=== PATIENT | male | born 1940 | race Caucasian/White ===

== ENCOUNTER 2020-06-29 18:34 | Emergency (ER) | payer OTHER, MEDICARE, SELFPAY ==
[~2020-06-29] VITALS: Ht 157.5 cm; Wt 62.6 kg
[2020-06-29 18:45] VITALS: BP_SYST 152
[2020-06-29 19:16] LABS: BASOPHILS # (AUTO) 0.1 K/uL (0.0-0.2); BASOPHILS % (AUTO) 0.9 % (0.0-2.0); EOSINOPHILS # (AUTO) 0.1 K/uL (0.0-0.4); EOSINOPHILS % (AUTO) 1.5 % (0.0-4.0); HEMATOCRIT 33.1 % (36-54); HEMOGLOBIN 11.2 g/dL (14.0-18.0); LYMPHOCYTES # (AUTO) 2.1 K/uL (1.0-5.5); LYMPHOCYTES % (AUTO) 23.1 % (20.5-51.5); MEAN CORPUSCULAR HEMOGLOBIN 33 pg (27-31); MEAN CORPUSCULAR HGB CONC 34 % (32-36); MEAN CORPUSCULAR VOLUME 96 fL (79.0-98.0); MONOCYTES % (AUTO) 10.6 % (1.7-9.3); NEUTROPHILS # (AUTO) 5.7 K/uL (1.8-7.7); NEUTROPHILS % (AUTO) 63.9 % (40.0-70.0); PLATELET COUNT (AUTO) 226 K/uL (130-430); RED BLOOD CELL COUNT(AUTO) 3.44 MIL/uL (4.2-6.2); RED CELL DISTRIBUTION WIDTH 13.5 % (9.0-15.0)
[2020-06-29] MEDS ORDERED: ONDANSETRON HCL 4 MG/2 ML VIAL IVP ONE (19:30)
[2020-06-29 19:51] LABS: ANION GAP 10 (5-15); CALCIUM 8.7 mg/dL (8.4-11.0); CHLORIDE 105 mmol/L (98-107); CREATININE 1.91 mg/dL (0.55-1.30); GLUCOSE 98 mg/dL (70-99); POTASSIUM 4.4 mmol/L (3.5-5.1); SODIUM SERUM 139 mmol/L (136-145); UREA NITROGEN, BLOOD 31 mg/dL (8-21)
[2020-06-29 19:57] LABS: ALANINE AMINOTRANSFERASE 23 U/L (12-78); ASPARTATE AMINOTRANSFERASE 25 U/L (10-37); TOTAL BILIRUBIN 0.4 mg/dL (0.0-1.0)
[2020-06-29 20:19] LABS: BILIRUBIN,URINE NEGATIVE (NEGATIVE); BLOOD, URINE 1+ (NEGATIVE); CLARITY/URINE CLEAR (CLEAR); COLOR,URINE YELLOW (YELLOW); GLUCOSE,URINE NEGATIVE (NEGATIVE); KETONES,URINE TRACE (NEGATIVE); LEUKOCYTE ESTERASE ,URINE NEGATIVE (NEGATIVE); NITRITE, URINE NEGATIVE (NEGATIVE); PROTEIN URINE 2+ (NEGATIVE); UROBILINOGEN,URINE 0.2 (0.2-1.0)
[2020-06-29 20:39] LABS: BACTERIA,URINE FEW /HPF (None Seen); HYALINE CASTS, URINE 0-10 /LPF (None Seen); RBC,URINE 0-3 /HPF (0-3); WBC,URINE 0-3 /HPF (0-3)
[2020-06-29 20:40] LABS: COARSE GRANULAR CASTS,URINE 0-10 /LPF (None Seen)
[2020-06-29 21:53] VITALS: BP_SYST 152
== END 2020-06-29 21:53 ==
LOC: SED 18:34
DX: R45.6 Violent behavior (principal); Z20.828 Contact with and (suspected) exposure to other viral communicable diseases
CPT/HCPCS: 36415; 71045; 80053; 81000-TC; 85025; 87081; 99285

== ENCOUNTER 2020-07-15 01:11 | Inpatient (IN) | payer OTHER, MEDICARE, SELFPAY ==
[~2020-07-15] VITALS: Ht 175.3 cm; Wt 73.0 kg
--- NOTE | 2020-07-15 01:11 | NUR ---
Patient to ER bed 5 to gown for evaluation. Side rails up. Report given to FREDDY.
--- NOTE | 2020-07-15 01:13 | NUR ---
PT ALERT BIB AMBULANCE FROM [facility] FOR LOW BLOOD PRESSURE TODAY. CURRENTLY V/S ARE STABLE AND PT IN NO ACUTE DISTRESS.
[2020-07-15 01:15] VITALS: BP_SYST 118
--- NOTE | 2020-07-15 01:15 | NUR ---
ER Dr. ROD at bedside examining patient.
[2020-07-15] MEDS ORDERED: NACL 0.9% 1,000 ML IV SCH (01:21)
--- NOTE | 2020-07-15 01:50 | NUR ---
VSS no s/s of acute distress Resting on gurney rails up
[2020-07-15 01:52] LABS: BASOPHILS # (AUTO) 0.1 K/uL (0.0-0.2); BASOPHILS % (AUTO) 0.4 % (0.0-2.0); EOSINOPHILS # (AUTO) 0.1 K/uL (0.0-0.4); EOSINOPHILS % (AUTO) 0.3 % (0.0-4.0); HEMOGLOBIN 13.3 g/dL (14.0-18.0); LYMPHOCYTES # (AUTO) 2.3 K/uL (1.0-5.5); LYMPHOCYTES % (AUTO) 13.3 % (20.5-51.5); MEAN CORPUSCULAR HEMOGLOBIN 32 pg (27-31); MEAN CORPUSCULAR HGB CONC 32 % (32-36); MEAN CORPUSCULAR VOLUME 100 fL (79.0-98.0); MONOCYTES # (AUTO) 1.2 K/uL (0.0-1.0); MONOCYTES % (AUTO) 6.7 % (1.7-9.3); NEUTROPHILS % (AUTO) 79.3 % (40.0-70.0); PLATELET COUNT (AUTO) 239 K/uL (130-430); WHITE BLOOD COUNT (AUTO) 17.7 K/uL (4.8-10.8)
[2020-07-15 02:34] LABS: ANION GAP 11 (5-15); CALCIUM 8.4 mg/dL (8.4-11.0); CREATININE 4.09 mg/dL (0.55-1.30); GLUCOSE 110 mg/dL (70-99); POTASSIUM 4.6 mmol/L (3.5-5.1); UREA NITROGEN, BLOOD 76 mg/dL (8-21)
[2020-07-15 02:50] LABS: ALANINE AMINOTRANSFERASE 37 U/L (12-78); ALBUMIN 2.8 g/dL (3.4-4.8); ASPARTATE AMINOTRANSFERASE 63 U/L (10-37); TOTAL BILIRUBIN 0.2 mg/dL (0.0-1.0)
[2020-07-15 02:54] LABS: SODIUM SERUM 161 mmol/L (136-145)
[2020-07-15 02:55] LABS: CHLORIDE 124 mmol/L (98-107)
--- NOTE | 2020-07-15 02:55 | NUR ---
Portable X Ray bedside, well tolerated
[2020-07-15 03:13] LABS: BILIRUBIN,URINE 1+ (NEGATIVE); BLOOD, URINE 2+ (NEGATIVE); CLARITY/URINE CLEAR (CLEAR); COLOR,URINE YELLOW (YELLOW); GLUCOSE,URINE NEGATIVE (NEGATIVE); KETONES,URINE TRACE (NEGATIVE); LEUKOCYTE ESTERASE ,URINE NEGATIVE (NEGATIVE); NITRITE, URINE NEGATIVE (NEGATIVE); PROTEIN URINE 1+ (NEGATIVE); UROBILINOGEN,URINE 0.2 (0.2-1.0)
[2020-07-15 03:13] LABS: CREATINE KINASE MB 16.8 ng/mL (0-3.6)
[2020-07-15 03:21] LABS: BACTERIA,URINE FEW /HPF (None Seen); WBC,URINE 0-3 /HPF (0-3)
--- NOTE | 2020-07-15 07:51 | NUR ---
CONSULTATION PAGED REASON FOR CONSULTATION:HYPERNMA WAS CONSULT CALLED? PERSON WHO WAS NOTIFIED:SUZANNE CONSULTING PHYSICIAN:JEWELS JOHNSON DRAFTER DIRECTIONAL SURVEY SPECIALTY:NEPHRO DRAFTER DIRECTIONAL SURVEY PHONE NUMBER:[phone] REQUESTING PHYSICIAN:DR.SINGHLAUREL [facility]AKS BE[facility] HEALTH CENTERJOSE MARIA
[2020-07-15] MEDS ORDERED: ALPHAGAN1 OP (07:56)
[2020-07-15] MEDS ORDERED: ACET325T PO (07:56)
[2020-07-15] MEDS ORDERED: LIP20 PO (07:56)
--- NOTE | 2020-07-15 07:58 | NUR ---
CONSULTATION PAGED REASON FOR CONSULTATION:TACHYCARDIA, HYPERNATREMIA WAS CONSULT CALLED?Y PERSON WHO WAS NOTIFIED:SUZANNE CONSULTING PHYSICIAN:DEBBIE RICHARDS PRACTICE CLINICIAN SPECIALTY:CARDIO PRACTICE CLINICIAN PHONE NUMBER:[phone] REQUESTING PHYSICIAN:DR.SINGHMOUNTAIN VIEW HOSPITALJOSE MARIA
[2020-07-15] MEDS ORDERED: ONDANSETRON HCL 4 MG/2 ML VIAL IVP PRN (08:00)
[2020-07-15] MEDS ORDERED: ACETAMINOPHEN 325 MG TABLET PO PRN (08:00)
[2020-07-15] MEDS ORDERED: MAGNESIUM SULFATE 50 ML IV PRN (08:00)
[2020-07-15] MEDS ORDERED: DOCUSATE SODIUM 100 MG CAPSULE PO PRN (08:00)
[2020-07-15] MEDS ORDERED: POTASSIUM CHLORIDE 20 MEQ TAB.PRT.SR PO PRN (08:00)
--- NOTE | 2020-07-15 08:00 | NUR ---
Dr. Patrick rounds/Restraints/Opening note patient was assessed by Dr. Patrick, patient is restless and combative and he pulled his IV line, patient pulling of Telemetry as well. Received orders for restraints. Informed Dr. Patrick that home medications list is present and will be entered into [employer] for Dr. Patrick to review, will follow up with any new orders.
[2020-07-15] MEDS ORDERED: TRAZ-250 PO (08:08)
[2020-07-15] MEDS ORDERED: LORA-258 PO (08:08)
[2020-07-15] MEDS ORDERED: MOM PO (08:08)
[2020-07-15] MEDS ORDERED: MV-M1TAB2 PO (08:08)
[2020-07-15] MEDS ORDERED: SER25 PO (08:08)
[2020-07-15] MEDS ORDERED: CAT1PAT TD (08:08)
[2020-07-15] MEDS ORDERED: QUET50TA PO (08:08)
[2020-07-15] MEDS ORDERED: ZOLP5TAB2 PO (08:08)
[2020-07-15] MEDS ORDERED: XALEYE OP (08:08)
[2020-07-15] MEDS ORDERED: LISI10TA5 PO (08:08)
--- NOTE | 2020-07-15 08:15 | NUR ---
Called family regarding restraints, patient's Izabella verbalized understanding and is agreeable.
--- NOTE | 2020-07-15 08:18 | NUR ---
CONSULTATION PAGED REASON FOR CONSULTATION:ANGELA CARPIO WAS CONSULT CALLED?Y PERSON WHO WAS NOTIFIED:ISSA BRICE TEXT MESSAGED CONSULTING PHYSICIAN:ISSA BRICE TELEPHONE SURVEYOR SPECIALTY:NEURO TELEPHONE SURVEYOR PHONE NUMBER:[phone] REQUESTING PHYSICIAN:DR.SINGHBRIAN
[2020-07-15] MEDS ORDERED: HALOPERIDOL LACTATE 5 MG/ML VIAL IM PRN (08:30)
--- NOTE | 2020-07-15 08:47 | NUR ---
CONSULTATION PAGED REASON FOR CONSULTATION:SEVERE AGITATION WAS CONSULT CALLED?Y PERSON WHO WAS NOTIFIED:RIAN CONSULTING PHYSICIAN:HONG NYE SALESPERSON CORSETS SPECIALTY:PSYCH SALESPERSON CORSETS PHONE NUMBER:[phone] REQUESTING PHYSICIAN:DR.[facility]
[2020-07-15] MEDS ORDERED: HALOPERIDOL LACTATE 5 MG/ML VIAL ONE (08:50)
[2020-07-15 09:00] VITALS: BP_SYST 118
[2020-07-15] MEDS ORDERED: D5W 1,000 ML IV SCH ×4 (09:00→13:13)
[2020-07-15] MEDS: VALPROIC ACID 250 MG CAPSULE (DEPAKENE) PO SCH ×2 (09:00→20:38)
[2020-07-15] MEDS: QUEtiapine FUMARATE 25 MG TABLET PO SCH ×2 (09:00→14:23)
[2020-07-15] MEDS: BRIMONIDINE TARTRATE 0.2% 5 mL EYE DROPS OP SCH ×3 (09:00→20:38)
[2020-07-15] MEDS ORDERED: D5W 250 ML IV ONE (09:00)
--- NOTE | 2020-07-15 09:26 | NUR ---
Patient code status Dr. Pham spoke with patient's Izabella regarding patient's code status, Izabella wishes for patient to be DNR. Spoke with Izabella myself and she states that Dr. Pham gave her permission to visit the patient, informed Izabella that this will be arranged through the Electric Cell Tender as soon as possible, she verbalized understanding and did confirm that she would like her to be DNR. Informed Dr. Patrick of this as well, Dr. Patrick already made rounds and has not signed code status forms as of yet. Izabella Serrato [phone].
--- NOTE | 2020-07-15 09:45 | NUR ---
Sheriff Catheter Insertion sterile technique used, patient tolerated well. 16 FR.
[2020-07-15] MEDS: HEPARIN SODIUM,PORCINE 5,000 UNITS/ML VIAL SUBCUT SCH ×2 (09:49→20:39)
[2020-07-15] MEDS: cloNIDine HCL 0.1 MG/24 HR PATCH.TDWK TD SCH (09:49)
[2020-07-15] MEDS: cefTRIAXone 1 GM in D5W 50 ML IV SCH (09:49)
[2020-07-15 09:58] LABS: ANION GAP 14 (5-15); CALCIUM 7.9 mg/dL (8.4-11.0); CREATININE 3.57 mg/dL (0.55-1.30); GLUCOSE 83 mg/dL (70-99); POTASSIUM 3.9 mmol/L (3.5-5.1); UREA NITROGEN, BLOOD 72 mg/dL (8-21)
[2020-07-15] MEDS ORDERED: 0.45% NS 500 ML IV SCH (10:00)
[2020-07-15 10:02] LABS: SODIUM SERUM 162 mmol/L (136-145)
[2020-07-15 10:03] LABS: CHLORIDE 125 mmol/L (98-107)
[2020-07-15 10:16] LABS: VALPROIC ACID 46 ug/mL (50-100)
--- NOTE | 2020-07-15 11:38 | NUR ---
RN rounds patient resting in bed, calm now, no signs of distress, still on restraints, continuing to monitor, bed in lowest position, three side rails up, bed alarm on, bed close to nursing station, fall and aspiration precautions in place.
[2020-07-15 12:00] VITALS: BP_SYST 132
--- NOTE | 2020-07-15 12:17 | NUR ---
Patient's Family Izabella at bedside, contacted Strip Cutter Lisa to speak with her, will follow up for any assistance. Addendum: 07/15/20 at 1311 by Juan Ramon Edmondson RN Izabella Serrato, patient's , signed POLST for DNR.
--- NOTE | 2020-07-15 12:56 | NUR ---
Halver Machine Operator/Discharge Planning Note Patient was referred by nursing to Halver Machine Operator because his wanted him to have a DNR code status. I also conducted a Discharge Plan Assessment. DEPUTY CHIEF MAGISTRATE spoke with Juan Ramon LANGE and reviewed the chart. Patient's was given permission to visit patient. Phoned [facility], , and spoke with Catracho BARRETT. Patient was expected to DC today to [facility]. Arrangements were made and patient's had accepted transfer. Phoned [facility], p [phone], and spoke with Selena. Patient has been accepted there. I informed her that patient was here and may discharge to them soon. Patient is currently on restraints. They plan to accept patient when discharged, but will need to reevaluate. They have been in contact with patient's . They will refer patient to hospice, if appropriate, after he is admitted there. Met with patient's , Izabella [phone], in the Quiet Room. Izabella stated that patient has been declining for a few years. He was at [facility] prior to his admission to [facility]. She is accepting of transfer to [facility], if patient "makes it". She does not want patient to return to [facility]. Discussed patient's code status. Izabella, patient's , stated she does not have a DPOA for health care, but she knows patient would not want to live like this. She is very clear that she does not want patient to have CPR, a ventilator, dialysis, or artificial feeding. She had discussed this with Dr Pham. I had her sign the POLST and put it in the front of the chart. Offered support and briefly discussed that patient may be appropriate for hospice when/if he is discharged to the SNF. I brought her back to patient's room and gave her my card. Discussed the case with Daly REDMOND and Erich LOZADA. Halver Machine Operator/Case Management/Latex Dipper will remain available.
[2020-07-15] MEDS: D5W 1,000 ML IV SCH ×3 (14:22→23:26)
--- NOTE | 2020-07-15 14:23 | NUR ---
RN rounds patient resting in bed, eyes closed, breathing is even and unlabored, no signs of distress, IV lines are patent and infusing well, no s/s of infiltration, restraints in place, no signs of injury or skin breakdown, continuing to monitor, bed in lowest position, three side rails up, bed alarm on, bed close to nursing station, fall and aspiration precautions in place.
--- NOTE | 2020-07-15 16:01 | NUR ---
RN rounds patient resting in bed, eyes closed, breathing is even and unlabored, cleaned, turned and repositioned patient with FOAM RUBBER MOLDER, patient was restless and attempting to hit, restraints continuing, no signs of injury or skin breakdown, continuing to monitor, bed in lowest position, three side rails up, bed alarm on, bed close to nursing station, fall and aspiration precautions in place.
[2020-07-15] MEDS: LORazepam 2 MG/ML VIAL IVP PRN ×2 (16:32→20:40)
--- NOTE | 2020-07-15 17:15 | NUR ---
RN rounds patient is restless, IV Ativan given per MD orders, IV Fluids hung and infusing well, IV line is patent, no s/s of infiltration, repositioned patient , continuing to monitor, bed in lowest position, three side rails up, bed alarm on, bed close to nursing station, fall and aspiration precautions in place.
[2020-07-15 17:37] VITALS: BP_SYST 137
--- NOTE | 2020-07-15 18:33 | NUR ---
Closing note patient resting in bed, restless still, on restraints, no signs of skin break down or injury, all needs met, will endorse report to NOC shift nurse, IV line is patent and infusing well, Sheriff Catheter draining to gravity, bed in lowest position, three side rails up, bed alarm on, bed close to nursing station, fall and aspiration precautions in place.
--- NOTE | 2020-07-15 19:41 | NUR ---
RN ROUNDS Received patient lying in bed, awake, confused, in no distress, vital signs stable. On 02 1L via NC. IV line to left arm intact and patent, IVF infusing, bilateral wrist restraints in place. street catheter secured and to gravity draining ambrosio urine. Fall and safety measures in place.
[2020-07-15] MEDS: ATORVASTATIN 20 MG TABLET PO SCH (20:38)
[2020-07-15] MEDS: traZODone HCL 50 MG TABLET (DESYREL) PO SCH (20:41)
[2020-07-15] MEDS ORDERED: QUEtiapine FUMARATE 25 MG TABLET PO SCH (21:00)
--- NOTE | 2020-07-15 21:44 | NUR ---
MED PASS Patient awake, restless, in no distress, remains on 02 1L NC, vitals stable. due medications administered, crushed and given with applesauce, aspiration precautions maintained. Patient given ativan 1 mg IVP for restlessness, bilateral wrist restraints in place.
--- NOTE | 2020-07-15 22:35 | NUR ---
RN ROUNDS Patient sleeping, breathing is even and unlabored, remains on 02 1L NC, repositioned with pillow support, bilateral wrist restraints in place, no signs of injury noted, fall and safety measures in place.
--- NOTE | 2020-07-16 00:21 | NUR ---
RN ROUNDS Patient resting quietly in bed, respirations is even and unlabored, remains on 02 1L NC, hygiene care provided, repositioned with pillow support, bilateral wrist restraints in place, no signs of injury noted, fall and safety measures in place.
--- NOTE | 2020-07-16 02:18 | NUR ---
RN ROUNDS Patient sleeping, respirations is even and unlabored, remains on 02 1L NC, repositioned with pillow support, bilateral wrist restraints in place, no signs of injury noted, fall and safety measures in place.
[2020-07-16] MEDS: LORazepam 2 MG/ML VIAL IVP PRN ×2 (03:04→11:36)
--- NOTE | 2020-07-16 03:11 | NUR ---
RN ROUNDS Patient awake, restless, in no distress, remains on 02 1L NC, vitals stable, administered ativan 1 mg IVP for restlessness, bilateral wrist restraints in place, repositioned for comfort, safety precautions maintained.
--- NOTE | 2020-07-16 04:16 | NUR ---
RN ROUNDS Patient calm and sleeping in intervals, respirations is even and unlabored, remains on 02 1L NC, repositioned with pillow support, bilateral wrist restraints in place, no signs of injury noted, fall and safety measures in place.
--- NOTE | 2020-07-16 05:14 | NUR ---
MD Dr. Mendenhall at patients bedside, updated him on patients status, new medications ordered.
[2020-07-16 06:19] LABS: BASOPHILS % (AUTO) 0.3 % (0.0-2.0); EOSINOPHILS # (AUTO) 0.1 K/uL (0.0-0.4); EOSINOPHILS % (AUTO) 0.5 % (0.0-4.0); HEMATOCRIT 34.9 % (36-54); HEMOGLOBIN 11.4 g/dL (14.0-18.0); LYMPHOCYTES # (AUTO) 2.1 K/uL (1.0-5.5); LYMPHOCYTES % (AUTO) 18.2 % (20.5-51.5); MEAN CORPUSCULAR HEMOGLOBIN 32 pg (27-31); MEAN CORPUSCULAR HGB CONC 33 % (32-36); MEAN CORPUSCULAR VOLUME 98 fL (79.0-98.0); NEUTROPHILS # (AUTO) 8.3 K/uL (1.8-7.7); PLATELET COUNT (AUTO) 177 K/uL (130-430); RED BLOOD CELL COUNT(AUTO) 3.58 MIL/uL (4.2-6.2); RED CELL DISTRIBUTION WIDTH 13.8 % (9.0-15.0); WHITE BLOOD COUNT (AUTO) 11.5 K/uL (4.8-10.8)
--- NOTE | 2020-07-16 06:19 | NUR ---
RN ROUNDS Patient sleeping, respirations is even and unlabored, remains on 02 1L NC, repositioned with pillow support, bilateral wrist restraints in place, no signs of injury noted, fall and safety measures maintained, will continue to monitor until report given to am nurse.
[2020-07-16] MEDS: D5W 1,000 ML IV SCH ×2 (06:43→17:05)
--- NOTE | 2020-07-16 07:10 | NUR ---
RECEIVED REPORT FROM NIGHT RN. RESP REG NON-LABORED, ASLEEP.
[2020-07-16 07:14] LABS: ANION GAP 9 (5-15); CALCIUM 7.7 mg/dL (8.4-11.0); CHLORIDE 116 mmol/L (98-107); CREATININE 2.26 mg/dL (0.55-1.30); GLUCOSE 93 mg/dL (70-99); POTASSIUM 3.5 mmol/L (3.5-5.1); SODIUM SERUM 150 mmol/L (136-145); UREA NITROGEN, BLOOD 51 mg/dL (8-21)
[2020-07-16 08:00] VITALS: BP_SYST 132
[2020-07-16] MEDS ORDERED: 0.45% NACL 1,000 ML IV ONE (08:15)
[2020-07-16] MEDS: OLANZapine 5 MG TABLET PO SCH ×2 (08:39→20:55)
[2020-07-16 08:40] LABS: CKMB RELATIVE INDEX 0.4 (0.0-2.9); CREATINE KINASE MB 10.7 ng/mL (0-3.6); VALPROIC ACID 18 ug/mL (50-100)
[2020-07-16] MEDS: clonazePAM 0.5 MG TABLET PO SCH ×3 (08:40→20:42)
[2020-07-16] MEDS: VALPROIC ACID 250 MG CAPSULE (DEPAKENE) PO SCH ×2 (08:40→20:55)
[2020-07-16] MEDS: HEPARIN SODIUM,PORCINE 5,000 UNITS/ML VIAL SUBCUT SCH ×2 (08:42→20:42)
[2020-07-16] MEDS: cefTRIAXone 1 GM in D5W 50 ML IV SCH (08:43)
[2020-07-16] MEDS: BRIMONIDINE TARTRATE 0.2% 5 mL EYE DROPS OP SCH ×3 (08:44→20:43)
--- NOTE | 2020-07-16 09:34 | NUR ---
Nutrition Update Moo Scale 16 noted. Pt admitted for hypernatremia. Diet: cardiac, puree BMI: 23.6 kg/m2 RD to follow per nutrition care standards.
--- NOTE | 2020-07-16 10:00 | NUR ---
MED PASS. PT TOLERATED MEDS WELL WITH YOGURT. IVF INFUSING AT 150ML/HR. 1/2 NS IVF 500 ML BOLUS GIVEN PER ORDERS.
--- NOTE | 2020-07-16 11:20 | NUR ---
PT RESTLESS, MEDICATED W/ ATIVAN 1 MG IVP. MEDICATION EFFECTIVE PATIENT ASLEEP AT PRESENT, NAD NOTED.
--- NOTE | 2020-07-16 11:31 | NUR ---
PT W/ CHANGE IN STATUS, TO CONTACT ISOLATION. RE: POSITIVE FOR MRSA, BEING TRANSFERRED TO ROOM 118, FOR SAFETY AND PER PROTOCOL.
--- NOTE | 2020-07-16 11:35 | NUR ---
TRANSFERRED TO ROOM 118, ABORTED DUE TO PLUMBING DISRUPTION ROOM NOT AVAIL., ROOM CHANGE PENDING.
[2020-07-16 12:25] VITALS: BP_SYST 133
[2020-07-16 16:10] VITALS: BP_SYST 105
--- NOTE | 2020-07-16 16:30 | NUR ---
PT WILL REMAIN IN ROOM 132 A, ON CONTACT ISOLATION FOR MRSA. BACITRACIN OINT NOT AVAIL FROM PHARMACY AT 1300, GIVEN UPON ARRIVAL PT ASLEEP AND CALM. MAD NOTED. WILL CONT. TO MONITOR.
[2020-07-16] MEDS: MUPIROCIN 2% TOPICAL OINTMENT 22 GM NS SCH ×2 (16:51→20:44)
--- NOTE | 2020-07-16 18:29 | NUR ---
ON ROUNDS PT ASLEEP, CALM, PM CARE DONE. TOLERATED WELL, NO APPARENT DISTRESS NOTED.
--- NOTE | 2020-07-16 19:25 | NUR ---
REPORT TO THE LONE LEAD LINEMAN RN.
--- NOTE | 2020-07-16 19:35 | NUR ---
ROUNDS PATIENT IN BED, AWAKE, CONFUSED, NOT IN DISTRESS, VITALS STABLE, NO SIGNS OF ANY PAIN AND DISCOMFORT NOTED. ASSESSMENT DONE AND DOCUMENTED. SEE FLOWHEET. ON BILATERAL SOFT WRIST RESTRAINTS FOR PULLING OUT LINES AND SAFETY. NEEDS ATTENDED TO. BED IN LOW AND LOCKED POSITION. CALL LIGHT PLACED WITHIN REACH.
[2020-07-16] MEDS: ATORVASTATIN 20 MG TABLET PO SCH (20:42)
[2020-07-16] MEDS: traZODone HCL 50 MG TABLET (DESYREL) PO SCH (20:55)
--- NOTE | 2020-07-16 21:18 | NUR ---
MEDICATION DUE MEDICATIONS GIVEN SCHEDULED, TOLERATED WELL. WILL CONTINUE TO MONITOR.
[2020-07-17] VITALS: BP_SYST 157
--- NOTE | 2020-07-17 00:16 | NUR ---
PATIENT RESTING: Patient resting quietly. No acute distress noted. Vital signs within normal range.
--- NOTE | 2020-07-17 02:14 | NUR ---
ROUNDS PATIENT ASLEEP, RESPIRATIONS EVEN AND UNLABORED, NO SOB NOTED. WILL CONTINUE TO MONITOR.
--- NOTE | 2020-07-17 04:12 | NUR ---
PATIENT RESTING: Patient resting quietly. No acute distress noted. Vital signs within normal range.
--- NOTE | 2020-07-17 06:19 | NUR ---
CLOSING NOTES PATIENT STILL ASLEEP, NOT IN DISTRESS, NO SIGNS OF ANY PAIN NOTED AT THIS TIME. ALL NEEDS ATTENDED TO. SAFETY MEASURES MAINTAINED. CALL LIGHT PLACED WITHIN REACH.
[2020-07-17 06:43] LABS: BASOPHILS % (AUTO) 0.2 % (0.0-2.0); EOSINOPHILS # (AUTO) 0.1 K/uL (0.0-0.4); HEMATOCRIT 33.5 % (36-54); HEMOGLOBIN 11.2 g/dL (14.0-18.0); LYMPHOCYTES # (AUTO) 2.2 K/uL (1.0-5.5); LYMPHOCYTES % (AUTO) 19.2 % (20.5-51.5); MEAN CORPUSCULAR HEMOGLOBIN 32 pg (27-31); MEAN CORPUSCULAR HGB CONC 34 % (32-36); MEAN CORPUSCULAR VOLUME 97 fL (79.0-98.0); MONOCYTES # (AUTO) 0.9 K/uL (0.0-1.0); MONOCYTES % (AUTO) 7.5 % (1.7-9.3); NEUTROPHILS # (AUTO) 8.4 K/uL (1.8-7.7); NEUTROPHILS % (AUTO) 72.1 % (40.0-70.0); PLATELET COUNT (AUTO) 155 K/uL (130-430); RED BLOOD CELL COUNT(AUTO) 3.47 MIL/uL (4.2-6.2); RED CELL DISTRIBUTION WIDTH 13.6 % (9.0-15.0); WHITE BLOOD COUNT (AUTO) 11.6 K/uL (4.8-10.8)
--- NOTE | 2020-07-17 07:10 | NUR ---
RECEIVED REPORT FROM OIL FIELD PUMPER RN. PT ASLEEP AT PRESENT. RESP REG NON-LABORED. NO DISTRESS NOTED.
[2020-07-17 07:18] LABS: ALANINE AMINOTRANSFERASE 46 U/L (12-78); ALBUMIN 2.2 g/dL (3.4-4.8); ANION GAP 8 (5-15); ASPARTATE AMINOTRANSFERASE 87 U/L (10-37); CALCIUM 7.8 mg/dL (8.4-11.0); CHLORIDE 114 mmol/L (98-107); CREATININE 1.65 mg/dL (0.55-1.30); GLUCOSE 94 mg/dL (70-99); POTASSIUM 4.4 mmol/L (3.5-5.1); SODIUM SERUM 147 mmol/L (136-145); TOTAL BILIRUBIN 0.3 mg/dL (0.0-1.0); UREA NITROGEN, BLOOD 36 mg/dL (8-21)
[2020-07-17 08:20] VITALS: BP_SYST 126
[2020-07-17] MEDS: MUPIROCIN 2% TOPICAL OINTMENT 22 GM NS SCH ×2 (08:21→20:06)
[2020-07-17] MEDS: BRIMONIDINE TARTRATE 0.2% 5 mL EYE DROPS OP SCH ×3 (08:21→20:06)
[2020-07-17] MEDS: VALPROIC ACID 250 MG CAPSULE (DEPAKENE) PO SCH ×2 (08:22→20:04)
[2020-07-17] MEDS: OLANZapine 5 MG TABLET PO SCH ×2 (08:22→20:03)
[2020-07-17] MEDS: clonazePAM 0.5 MG TABLET PO SCH ×3 (08:22→20:03)
[2020-07-17] MEDS: HEPARIN SODIUM,PORCINE 5,000 UNITS/ML VIAL SUBCUT SCH ×2 (08:30→20:05)
[2020-07-17] MEDS: cefTRIAXone 1 GM in D5W 50 ML IV SCH (08:40)
--- NOTE | 2020-07-17 09:38 | NUR ---
RESTRAINTS REMOVED. PT ASLEEP AND CALM.
--- NOTE | 2020-07-17 10:00 | NUR ---
MED PASS AND NURSING ASSESSMENT DONE. PT TOLERATED PO (CRUSHED) MEDS AND FOOD INTAKE WELL, AT PRESENT CALM W/ EYES CLOSED. NAD NOTED, OR RESTLESSNESS.
[2020-07-17] MEDS: D5/0.45 NS 1,000 ML IV SCH ×2 (11:15→19:15)
--- NOTE | 2020-07-17 11:30 | NUR ---
PT TAMI CHESTER [ CONTACT #[phone]] CALLED FOR UPDATE ON GENERAL STATUS.
[2020-07-17 12:00] VITALS: BP_SYST 121
--- NOTE | 2020-07-17 13:30 | NUR ---
PATIENT BECAME COMBATIVE WITH ATTEMPT TO GET OOB. RESTRAINTS RESUMED.
--- NOTE | 2020-07-17 15:30 | NUR ---
PT IS RESTLESS ATTEMPTING TO GET OOB. RE-DIRECTED. WILL CONT TO MONITOR.
--- NOTE | 2020-07-17 16:29 | NUR ---
Dietitian Recommendations * Recommend continuing cardiac, pureed diet (ONS Ensure Enlive TID provided; 1059 kcal/day, 60 gm protein/day) * Encourage increase PO intakes LP, RD Please refer to Nutrition Assessment for details. Addendum: 07/17/20 at [address] Amended: Links added.
[2020-07-17 16:34] VITALS: BP_SYST 149
--- NOTE | 2020-07-17 18:20 | NUR ---
MED GIVEN EARLIER EFFECTIVE PATIENT ASLEEP, NAD, RESP REG AND NON-LABORED, RESTLESS AT INTERVALS. SLEEPING.
--- NOTE | 2020-07-17 19:00 | NUR ---
BEDSIDE REPORT TO GINGER FARMER RN.
--- NOTE | 2020-07-17 19:35 | NUR ---
ROUNDS PATIENT AWAKE, CONFUSED, NOT IN DISTRESS, VITALS STABLE. NO SIGNS OF ANY PAIN AND DISCOMFORT NOTED AT THIS TIME. ASSESSMENT DONE AND DOCUMENTED. SEE FLOWSHEET. NEEDS ATTENDED TO. SAFETY AND FALL MEASURES IN PLACED. BED IN LOW AND LOCKED POSITION. WILL CONTINUE TO MONITOR.
[2020-07-17] MEDS: traZODone HCL 50 MG TABLET (DESYREL) PO SCH (20:03)
[2020-07-17] MEDS: ATORVASTATIN 20 MG TABLET PO SCH (20:03)
--- NOTE | 2020-07-17 21:13 | NUR ---
MEDICATION DUE MEDICATIONS GIVEN, CRUSHED WITH APPLESAUCE, TOLERATED WELL. WILL CONTINUE TO MONITOR.
[2020-07-18] VITALS: BP_SYST 117
--- NOTE | 2020-07-18 00:17 | NUR ---
PATIENT RESTING: Patient resting quietly. No acute distress noted. Vital signs within normal range.
--- NOTE | 2020-07-18 02:13 | NUR ---
ROUNDS PATIENT ASLEEP, RESPIRATIONS EVEN AND UNLABORED, NO SOB NOTED. WILL CONTINUE TO MONITOR.
[2020-07-18] MEDS: D5/0.45 NS 1,000 ML IV SCH ×3 (03:15→17:04)
--- NOTE | 2020-07-18 04:13 | NUR ---
ROUNDS PATIENT AWAKE, FEET AT THE SIDERAILS, VITALS STABLE. MADE CLEAN AND COMFORTABLE. WILL CONTINUE TO MONITOR.
--- NOTE | 2020-07-18 06:35 | NUR ---
CLOSING NOTES PATIENT RESTING AT THIS TIME, NO SOB NOR PAIN AND DISCOMFORT NOTED. ALL NEEDS ATTENDED TO. SAFETY MEASURES MAINTAINED. WILL ENDORSE TO INCOMING SHIFT NURSE.
[2020-07-18 06:36] LABS: BASOPHILS % (AUTO) 0.2 % (0.0-2.0); EOSINOPHILS # (AUTO) 0.2 K/uL (0.0-0.4); EOSINOPHILS % (AUTO) 2.1 % (0.0-4.0); HEMATOCRIT 31.2 % (36-54); HEMOGLOBIN 10.6 g/dL (14.0-18.0); LYMPHOCYTES # (AUTO) 2.1 K/uL (1.0-5.5); LYMPHOCYTES % (AUTO) 24.5 % (20.5-51.5); MEAN CORPUSCULAR HEMOGLOBIN 33 pg (27-31); MEAN CORPUSCULAR HGB CONC 34 % (32-36); MEAN CORPUSCULAR VOLUME 96 fL (79.0-98.0); MONOCYTES # (AUTO) 0.8 K/uL (0.0-1.0); MONOCYTES % (AUTO) 9.4 % (1.7-9.3); NEUTROPHILS # (AUTO) 5.5 K/uL (1.8-7.7); NEUTROPHILS % (AUTO) 63.8 % (40.0-70.0); PLATELET COUNT (AUTO) 150 K/uL (130-430); RED BLOOD CELL COUNT(AUTO) 3.25 MIL/uL (4.2-6.2); RED CELL DISTRIBUTION WIDTH 13.4 % (9.0-15.0); WHITE BLOOD COUNT (AUTO) 8.6 K/uL (4.8-10.8)
[2020-07-18 07:13] LABS: ANION GAP 9 (5-15); CALCIUM 7.5 mg/dL (8.4-11.0); CHLORIDE 109 mmol/L (98-107); GLUCOSE 129 mg/dL (70-99); POTASSIUM 3.5 mmol/L (3.5-5.1); SODIUM SERUM 141 mmol/L (136-145); UREA NITROGEN, BLOOD 29 mg/dL (8-21)
--- NOTE | 2020-07-18 07:40 | NUR ---
OPENING NOTES PT RESTING IN BED, CHEST RISE AND FALL NOTED. NONLABORED BREATHING NOTED, RECEIVING O2 AT 2LPM VIA NASAL CANNULA, TOLERATING WELL. NO S/S OF PAIN NOR SOB NOTED. IV LINE INTACT AND PATENT, NO SIGNS OF INFILTRATION NOTED, FLUIDS RUNNING ORDERED. DYKES CATHETER INTACT AND DRAINING. NO ACUTE DISTRESS NOTED. SOFT BILATERAL WRIST RESTRAINTS INTACT, NO SIGNS OF INJURY NOTED. BED LOCKED AND IN LOWEST POSITION. ALL NEEDS MET. CALL LIGHT IN REACH. FALL, ASPIRATION, AND CONTACT PRECAUTIONS IN PLACE. CONTINUE TO MONITOR.
[2020-07-18 08:00] VITALS: BP_SYST 112
[2020-07-18] MEDS: cefTRIAXone 1 GM in D5W 50 ML IV SCH (08:30)
[2020-07-18] MEDS: clonazePAM 0.5 MG TABLET PO SCH ×3 (08:31→20:32)
[2020-07-18] MEDS: OLANZapine 5 MG TABLET PO SCH ×2 (08:31→20:32)
[2020-07-18] MEDS: VALPROIC ACID 250 MG CAPSULE (DEPAKENE) PO SCH ×2 (08:31→20:32)
[2020-07-18] MEDS: HEPARIN SODIUM,PORCINE 5,000 UNITS/ML VIAL SUBCUT SCH ×2 (08:32→20:31)
[2020-07-18] MEDS: BRIMONIDINE TARTRATE 0.2% 5 mL EYE DROPS OP SCH ×3 (08:33→20:30)
[2020-07-18] MEDS: MUPIROCIN 2% TOPICAL OINTMENT 22 GM NS SCH ×2 (08:34→20:30)
--- NOTE | 2020-07-18 08:54 | NUR ---
routine meds administered as ordered per md, education given, tolerated well. pt attempted to hit, combative. continue to monitor. Addendum: 07/18/20 at 1157 by Judy Moss RN dropped 1 pill of valproic acid, wasted the one fell on the floor, and got new one from [facility].
--- NOTE | 2020-07-18 11:04 | NUR ---
ROUNDS PT RESTING IN BED, CHEST RISE AND FALL NOTED. EASILY WAKEN. NO ACUTE DISTRESS NOTED. ALL NEEDS MET. CALL LIGHT IN REACH. CONTINUE TO MONITOR.
[2020-07-18 12:00] VITALS: BP_SYST 121
--- NOTE | 2020-07-18 13:08 | NUR ---
ROUNDS PT RESTING IN BED, CHEST RISE AND FALL NOTED. NO ACUTE DISTRESS NOTED. ALL NEEDS MET. CALL LIGHT IN REACH. CONTINUE TO MONITOR.
--- NOTE | 2020-07-18 14:29 | NUR ---
ROUTINE MEDS/ WOUND CARE/ CLEANED PT ROUTINE MEDS ADMINISTERED ORDERED PER MD, EDUCATION GIVEN, TOLERATED WELL. WOUND CARE DONE, AND CLEANED PT, APPLIED Z-GUARD, TOLERATED WELL. CONTINUE TO MONITOR.
[2020-07-18 16:00] VITALS: BP_SYST 97
--- NOTE | 2020-07-18 17:05 | NUR ---
iv fluids administered as ordered per md, education given, tolerated well. continue to monitor.
--- NOTE | 2020-07-18 18:55 | NUR ---
CLOSING NOTES PT RESTING IN BED, CHEST RISE AND FALL NOTED. AWAKEN TO VOICE. NONLABORED BREATHING NOTED, RECEIVING O2 AT 2LPM VIA NASAL CANNULA, TOLERATING WELL. NO S/S OF PAIN NOR SOB NOTED. DYKES CATHETER INTACT AND DRAINING. IV LINE INTACT AND PATENT, NO SIGNS OF INFILTRATION NOTED, FLUIDS RUNNING ORDERED. NO ACUTE DISTRESS NOTED. SOFT BILATERAL WRIST RESTRAINTS INTACT, NO SIGNS OF INJURY NOTED. BED LOCKED AND IN LOWEST POSITION. ALL NEEDS MET. CALL LIGHT IN REACH. FALL, ASPIRATION, AND CONTACT PRECAUTIONS IN PLACE. WILL ENDORSE TO NOC NURSE.
--- NOTE | 2020-07-18 19:30 | NUR ---
ROUNDS PATIENT IN BED, CONFUSED, VITALS STABLE, NO SIGNS OF ANY PAIN AND DISCOMFORT NOTED. ASSESSMENT DONE AND DOCUMENTED. SEE FLOWSHEET. NEEDS ATTENDED TO. SAFETY MEASURES IN PLACED. BED IN LOW AND LOCKED POSITION. BED ALARM ON. WILL CONTINUE TO MONITOR.
[2020-07-18 20:00] VITALS: BP_SYST 116
[2020-07-18] MEDS: traZODone HCL 50 MG TABLET (DESYREL) PO SCH (20:32)
[2020-07-18] MEDS: ATORVASTATIN 20 MG TABLET PO SCH (20:32)
--- NOTE | 2020-07-18 21:14 | NUR ---
MEDICATION DUE MEDICATIONS GIVEN SCHEDULED, TOLERATED WELL. WILL CONTINUE TO MONITOR.
[2020-07-19] VITALS: BP_SYST 123
--- NOTE | 2020-07-19 00:13 | NUR ---
PATIENT RESTING: Patient resting quietly. No acute distress noted. Vital signs within normal range.
[2020-07-19] MEDS: D5/0.45 NS 1,000 ML IV SCH ×3 (01:10→20:58)
--- NOTE | 2020-07-19 02:17 | NUR ---
ROUNDS PATIENT ASLEEP, RESPIRATIONS EVEN AND UNLABORED, WILL CONTINUE TO MONITOR.
--- NOTE | 2020-07-19 04:16 | NUR ---
ROUNDS PATIENT SLEEPING, NO SOB, RESPIRATIONS EVEN AND UNLABORED. WILL CONTINUE TO MONITOR.
--- NOTE | 2020-07-19 06:13 | NUR ---
CLOSING NOTES PATIENT RESTING AT THIS TIME, VITALS STABLE, NEEDS ATTENDED TO. MADE CLEAN AND COMFORTABLE, HAD BOWEL MOVEMENT. SAFETY MEASURES MAINTAINED. WILL ENDORSE TO INCOMING SHIFT NURSE.
[2020-07-19 06:35] LABS: BASOPHILS % (AUTO) 0.3 % (0.0-2.0); EOSINOPHILS # (AUTO) 0.2 K/uL (0.0-0.4); EOSINOPHILS % (AUTO) 2.2 % (0.0-4.0); HEMATOCRIT 33.3 % (36-54); HEMOGLOBIN 11.2 g/dL (14.0-18.0); LYMPHOCYTES # (AUTO) 1.9 K/uL (1.0-5.5); LYMPHOCYTES % (AUTO) 17.6 % (20.5-51.5); MEAN CORPUSCULAR HEMOGLOBIN 33 pg (27-31); MEAN CORPUSCULAR HGB CONC 34 % (32-36); MEAN CORPUSCULAR VOLUME 98 fL (79.0-98.0); MONOCYTES # (AUTO) 0.9 K/uL (0.0-1.0); MONOCYTES % (AUTO) 8.2 % (1.7-9.3); NEUTROPHILS # (AUTO) 7.6 K/uL (1.8-7.7); NEUTROPHILS % (AUTO) 71.7 % (40.0-70.0); PLATELET COUNT (AUTO) 169 K/uL (130-430); RED BLOOD CELL COUNT(AUTO) 3.41 MIL/uL (4.2-6.2); RED CELL DISTRIBUTION WIDTH 13.7 % (9.0-15.0); WHITE BLOOD COUNT (AUTO) 10.7 K/uL (4.8-10.8)
[2020-07-19 06:41] LABS: ALANINE AMINOTRANSFERASE 43 U/L (12-78); ALBUMIN 2.1 g/dL (3.4-4.8); ANION GAP 4 (5-15); ASPARTATE AMINOTRANSFERASE 59 U/L (10-37); CALCIUM 8.1 mg/dL (8.4-11.0); CHLORIDE 110 mmol/L (98-107); GLUCOSE 100 mg/dL (70-99); POTASSIUM 4.6 mmol/L (3.5-5.1); SODIUM SERUM 141 mmol/L (136-145); TOTAL BILIRUBIN 0.2 mg/dL (0.0-1.0); UREA NITROGEN, BLOOD 24 mg/dL (8-21)
--- NOTE | 2020-07-19 07:35 | NUR ---
AM ROUNDS: PATIENT ON CONTACT ISOLATION FOR MRSA NARES. O2 2L/NC,GOOD SATURATION.IV FLUIDS RUNNING AT LEFT UPPER ARM INTACT. CALL LIGHT WITH IN REACH. BED LOCKED AT LOWEST POSITION.DNR . NOT IN ANY DISTRESS.
[2020-07-19 08:00] VITALS: BP_SYST 149
[2020-07-19] MEDS: VALPROIC ACID 250 MG CAPSULE (DEPAKENE) PO SCH ×2 (08:42→20:54)
--- NOTE | 2020-07-19 08:42 | NUR ---
MED PASS: DUE PO CRUSHED MEDS WITH APPLE SAUCE,TOOK IT WELL.NO PROBLEM.
[2020-07-19] MEDS: OLANZapine 5 MG TABLET PO SCH ×2 (08:43→20:54)
[2020-07-19] MEDS: clonazePAM 0.5 MG TABLET PO SCH ×3 (08:43→20:54)
[2020-07-19] MEDS: HEPARIN SODIUM,PORCINE 5,000 UNITS/ML VIAL SUBCUT SCH ×2 (08:44→20:57)
[2020-07-19] MEDS: MUPIROCIN 2% TOPICAL OINTMENT 22 GM NS SCH ×2 (08:45→20:59)
[2020-07-19] MEDS: cefTRIAXone 1 GM in D5W 50 ML IV SCH (08:46)
[2020-07-19] MEDS: BRIMONIDINE TARTRATE 0.2% 5 mL EYE DROPS OP SCH ×3 (08:49→20:59)
[2020-07-19 12:20] VITALS: BP_SYST 112
--- NOTE | 2020-07-19 12:30 | NUR ---
LUNCH: PATIENT FED BY RETAIL SALES SPECIALIST. BUT VERY SLEEPY,TOOK SOME PUREE THEN WENT BACK TO SLEEP. NO DISTRESS.
--- NOTE | 2020-07-19 13:43 | NUR ---
Physician/Ophthalmologist Notes/letter: TEMPLATE REPRODUCTION TECHNICIAN received a call from pt's , Izabella requesting for a letter that the patient is admitted at the hospital. SS faxed letter to [facility] @ [phone]. SS will remain available.
--- NOTE | 2020-07-19 14:25 | NUR ---
RN ROUNDS: PATIENT SLEEPING. NOT IN ANY RESPIRATORY DISTRESS,
--- NOTE | 2020-07-19 16:10 | NUR ---
CARE NOTES: LABORATORY DIRECTOR AND RN CLEAN UP THE PATIENT AND TURNED TO SIDES. STABLE.
[2020-07-19 16:13] VITALS: BP_SYST 140
--- NOTE | 2020-07-19 18:41 | NUR ---
CLOSING NOTES: PATIENT RESTING. IV FLUIDS RUNNING WELL. BILATERAL SOFT WRIST RESTRAINT ON .CALL LIGHT WITH IN REACH. BED LOCKED AT LOWEST POSITION.DNR.
--- NOTE | 2020-07-19 19:30 | NUR ---
OPENING NOTES: Received report from dayshift nurse. Patient is laying in bed, awake but confused. He is not exhibiting any s/s of distress or discomfort. Patient in on 1L O2 via NC, appears to be tolerating well. He has IV on left upper arm with dry dressing. Sheriff catheter noted, draining to gravity. Patient is on restraints with no evidence of injury. Ensured all safety precautions. Bed is locked and in the lowest position, call light within reach and alarm on.
[2020-07-19 20:00] VITALS: BP_SYST 124
--- NOTE | 2020-07-19 20:50 | NUR ---
MEDICATION ADMINISTRATION: Patient is laying in bed with no s/s of distress or discomfort. Patient's vital signs are within normal limits. Medications were administered as ordered, pt tolerated well. I attempted to remove the restraints but patient became very agitated and grabbed my arm, he attempted to hit me. I attempted to re-orient patient but he continued to be combative. Restraints were reapplied. Will continue to monitor patient.
[2020-07-19] MEDS: traZODone HCL 50 MG TABLET (DESYREL) PO SCH (20:53)
[2020-07-19] MEDS: ATORVASTATIN 20 MG TABLET PO SCH (20:53)
[2020-07-20] VITALS: BP_SYST 113
--- NOTE | 2020-07-20 02:00 | NUR ---
RN ROUNDS: Patient is laying in bed and is restless. I have attempted to re-orient patient and remove restraints however he reached to try to hit me and attempted to pull on IV line. Restraints were put back on. There is no evidence of injury with restraints. Will continue to monitor patient.
--- NOTE | 2020-07-20 04:00 | NUR ---
RN ROUNDS: Patient is laying in bed and appears to be asleep. He is calm at this time. Will continue to monitor patient and reassess restraints. Bed is int he lowest position with alarm on and call light within reach.
[2020-07-20 07:01] LABS: BASOPHILS % (AUTO) 0.2 % (0.0-2.0); EOSINOPHILS # (AUTO) 0.2 K/uL (0.0-0.4); EOSINOPHILS % (AUTO) 2.1 % (0.0-4.0); HEMATOCRIT 31.4 % (36-54); HEMOGLOBIN 10.5 g/dL (14.0-18.0); LYMPHOCYTES # (AUTO) 1.7 K/uL (1.0-5.5); LYMPHOCYTES % (AUTO) 14.2 % (20.5-51.5); MEAN CORPUSCULAR HEMOGLOBIN 32 pg (27-31); MEAN CORPUSCULAR HGB CONC 33 % (32-36); MEAN CORPUSCULAR VOLUME 97 fL (79.0-98.0); MONOCYTES # (AUTO) 1.2 K/uL (0.0-1.0); MONOCYTES % (AUTO) 9.9 % (1.7-9.3); NEUTROPHILS # (AUTO) 8.6 K/uL (1.8-7.7); NEUTROPHILS % (AUTO) 73.6 % (40.0-70.0); PLATELET COUNT (AUTO) 171 K/uL (130-430); RED BLOOD CELL COUNT(AUTO) 3.24 MIL/uL (4.2-6.2); RED CELL DISTRIBUTION WIDTH 13.3 % (9.0-15.0); WHITE BLOOD COUNT (AUTO) 11.7 K/uL (4.8-10.8)
--- NOTE | 2020-07-20 07:03 | NUR ---
CLOSING NOTES: Patient is laying in bed and appears to be asleep. He is not exhibiting any s/s of distress or discomfort. Patient in on 1L O2 via NC, appears to be tolerating well but keeps removing it. He has IV on left upper arm with dry dressing, patent and intact. Sheriff catheter noted, draining to gravity with yellow urine. Patient is on restraints with no evidence of injury. Ensured all safety precautions. Bed is locked and in the lowest position, call light within reach and alarm on. All needs were met throughout shift. Will endorse to dayshift nurse.
[2020-07-20 07:05] LABS: ANION GAP 7 (5-15); CALCIUM 7.7 mg/dL (8.4-11.0); CHLORIDE 111 mmol/L (98-107); CREATININE 1.17 mg/dL (0.55-1.30); GLUCOSE 106 mg/dL (70-99); POTASSIUM 3.7 mmol/L (3.5-5.1); SODIUM SERUM 142 mmol/L (136-145); UREA NITROGEN, BLOOD 17 mg/dL (8-21)
[2020-07-20] MEDS: D5/0.45 NS 1,000 ML IV SCH ×2 (07:26→17:40)
[2020-07-20 08:00] VITALS: BP_SYST 106
--- NOTE | 2020-07-20 08:10 | NUR ---
AM ROUNDS: MAINTAINED ON CONTACT ISOLATION PRECAUTION FOR MRSA NARES. LAYING ON THE BED,SLEEPING ,EASILY AROUSE. WITH BILATERAL SOFT WRIST RESTRAINT ON. GOOD CIRCULATION AND COLOR. IV FLUIDS RUNNING AT LEFT UPPER ARM INTACT. CALL LIGHT WITH IN REACH. BED LOCKED AT LOWEST POSITION. BED ALARM ON. DYKES IN PLACE,DRAINING CLEAR YELLOW URINE. NOT IN ANY DISTRESS.
[2020-07-20] MEDS: clonazePAM 0.5 MG TABLET PO SCH ×2 (08:42→21:15)
[2020-07-20] MEDS: VALPROIC ACID 250 MG CAPSULE (DEPAKENE) PO SCH ×2 (08:42→21:14)
[2020-07-20] MEDS: OLANZapine 5 MG TABLET PO SCH ×2 (08:42→21:14)
[2020-07-20] MEDS: cefTRIAXone 1 GM in D5W 50 ML IV SCH (08:42)
--- NOTE | 2020-07-20 08:42 | NUR ---
MED PASS: CRUSHED MEDS WITH APPLE SAUCE GIVEN.PATIENT TOLERATED IT WELL,WITH NO PROBLEM.
[2020-07-20] MEDS: HEPARIN SODIUM,PORCINE 5,000 UNITS/ML VIAL SUBCUT SCH ×2 (08:43→21:16)
[2020-07-20] MEDS: MUPIROCIN 2% TOPICAL OINTMENT 22 GM NS SCH ×2 (08:44→21:14)
[2020-07-20] MEDS: BRIMONIDINE TARTRATE 0.2% 5 mL EYE DROPS OP SCH ×3 (08:44→21:17)
--- NOTE | 2020-07-20 12:04 | NUR ---
Pulp Drier Firer Notes/Transfer to [facility]: SAMPLE MAKER ORIGINAL received order to discharge to [facility]. Pending [phone] Eval from Psych; RN notified. SAMPLE MAKER ORIGINAL spoke with [facility] intake @ [phone], clinicals faxed for review. SS will fax [phone] to [facility] Rodriguez when received. SS will follow up.
[2020-07-20 12:16] VITALS: BP_SYST 123
--- NOTE | 2020-07-20 14:51 | NUR ---
RN ROUNDS: PATIENT SLEEPING DURING ROUNDS. AWAITS PSYCHE EVAL TO GO BACK TO [facility].
[2020-07-20 16:03] VITALS: BP_SYST 160
--- NOTE | 2020-07-20 16:25 | NUR ---
SKIN TEAR CARE: CLEANSE WITH NS RIGHT FOREARM/LEFT FOREARM,PAT DRY.VASELINE GAUZE APPLIED AND COVER WITH FOAM DRESSING,WRAPPED WITH KERLIX.
--- NOTE | 2020-07-20 16:30 | NUR ---
JOSIANE MAC CALLED BACK: MELANIE LANGE SPOKE TO DR WILSON AND INFORMED HIM PATIENT NEEDS JOSIANE MUELLER TO [facility],HE WILL SEE PATIENT LATER.
--- NOTE | 2020-07-20 18:46 | NUR ---
CLOSING NOTES: PATIENT RESTING. BILATERAL SOFT WRIST RESTRAINT ON. MAINTAINED CONTACT ISOLATION PRECAUTION. DYKES IN PLACE. CALL LIGHT WITH IN REACH. BED LOCKED AT LOWEST POSITION. BED ALARM ON. AWAITS FOR PSYCHE EVALUATION. STABLE.
--- NOTE | 2020-07-20 19:30 | NUR ---
Opening notes Received report. Patient is resting in bed, no signs of distress noted. Breathing even and unlabored on room air. IV patent and intact, infusing fluids. Sheriff catheter in place with yellow urine. Bilateral wrist restraints in place, no signs of injury noted. No needs. Call light with the patient. Safety precautions in place.
[2020-07-20 20:30] VITALS: BP_SYST 132
[2020-07-20] MEDS: ATORVASTATIN 20 MG TABLET PO SCH (21:14)
[2020-07-20] MEDS: traZODone HCL 50 MG TABLET (DESYREL) PO SCH (21:15)
--- NOTE | 2020-07-20 21:30 | NUR ---
Medications given. Crushed with applesauce. Educated the action and side effects of Lipitor. Patient did not say anything, patient tolerated well. Patient ate entire applesauce. No distress. Patient repositioned. Patient tries to hit and pull at IV when restraints in place, Bilateral wrist restraints in place, no signs of injury noted. No other needs. Call light with the patient. Safety precautions in place.
--- NOTE | 2020-07-20 22:45 | NUR ---
Dr. Kessler Rounds seen and examined patient.
[2020-07-21] VITALS: BP_SYST 162
--- NOTE | 2020-07-21 00:30 | NUR ---
RN rounds Patient slides down in bed. Patient repositioned. Patient tries to hit when repositioned. Bilateral wrist restraints in place. No signs of injury. Call light with the patient. Safety precautions in place.
--- NOTE | 2020-07-21 02:38 | NUR ---
RN rounds Patient in and out of sleep. No signs of distress noted. Breathing even and unlabored on room air. IVF infusing well. Bilateral wrist restraints in place, no signs of injury. No needs. Call light with the patient. Safety precautions in place.
--- NOTE | 2020-07-21 04:00 | NUR ---
RN Rounds Hygiene care provided. Patient repositioned. Patient tolerated well. No signs of distress noted. Breathing even and unlabored on room air. No needs. Call light with the patient. Safety precautions in place.
--- NOTE | 2020-07-21 05:10 | NUR ---
Dr. Funes called nurses station and stated that patient has been accepted at [facility]. Addendum: 07/21/20 at 0515 by Regla White RN Informed MD that patient is going back to [facility]. stated that was fine. He can go to either facility, per Dr. Funes.
--- NOTE | 2020-07-21 06:54 | NUR ---
Closing notes Patient had large BM. Hygiene care provided. Patient tolerated well. Needs reorienting. Patient repositioned. No signs of distress noted. Breathing even and unlabored on room air. IV patent and intact, infusing fluids. Sheriff catheter in place, draining yellow urine. All needs met throughout the shift. Call light with the patient. Safety precautions in place. Will endorse care to day shift RN.
--- NOTE | 2020-07-21 07:20 | NUR ---
NURSE NOTE RECEIVED BEDSIDE SBAR FROM NIGHT RN, PATIENT IN BED, RESPIRATIONS EVEN, NON LABORED, BED IN LOW AND LOCKED POSITION, CALL LIGHT WITHIN REACH,
--- NOTE | 2020-07-21 08:00 | NUR ---
NURSE NOTE PATIENT INCONTINENT OF BOWEL, PROVIDED MIMA CARE, CHANGED LINENS, REPOSITIONED PATIENT, PATIENT TOLERATED WELL, NO SIGNS OF DISTRESS NOTED
--- NOTE | 2020-07-21 08:51 | NUR ---
SS Notes/Psych transfer: Patient on a 5150 hold for GD; faxed to [facility].
--- NOTE | 2020-07-21 09:25 | NUR ---
Nutrition F/U Admitting Diagnosis Hypernatremia Reviewed Pertinent Medical/Surgical Hx Medical Record Medical History Comment: PMH: Nils Bonnet Syndrome, legally blind, CVA, Alzheimer's dementia per physician notes SARS-CoV-2 Ag (Rapid) Negative 07/15 Subjective Information Pt w/ bilateral restraints and now on 5150 hold per RN note. Remains confused per MD note and continues to have negligible PO intake since last RD assessment w/ average of 19% x last 11 meals. Multiple meal refusals noted per EMR review. No new wt changes noted. LBM x 1 today per RN note. Pt is a/w to be discharge to [facility] per MD note. Recommend appetite stimulant and continue encourage PO intakes during meal times. Renal labs WNL as of today. Will continue monitor. Current Diet Order/Nutrition Support Cardiac, pureed x 5 days Pertinent Medications Haldol, MgSO4, K-Dur, Zofran, Colace Pertinent Labs (07/20) Na 142 WNL, BUN 17 WNL, WBC 11.7 H, CRE 1.17, ALB 2.1 L Skin Integrity Comment: Moo scale: 15; no PIs or edema noted per EMR review Current % PO 19% average x 11 meals; Negligible Estimated Energy Expenditure (kcals/day) 5605-6707 kcal/day (25-30 kcal/kg CBW for geriatric maintenance) Estimated Protein Required (g/day) 58-88 gm/day (0.8-1.2 gm/kg CBW for ARF, geriatric status) Estimated Fluid Required (l/day) Per physician d/t ARF) Problem/Etiology/Signs/Symptoms Inadequate nutritional intakes related to lack of appetite possibly a/w cognitive limitations as evidenced by poor PO intake average intakes and Hx of Alzheimer's dementia. *ongoing Expected Outcomes/Goals - Monitor appetite and PO intakes w/ goal of pt meeting at least 75% of estimated nutritional needs, labs trending WNL, normal GI function, and skin integrity/wt maintenance Dietitian Recommendations * Recommend continuing cardiac, pureed diet (ONS Ensure Enlive TID provided; 1050 kcal/day, 60 gm protein/day) * Encourage increase PO intakes during meal times Follow Up High Risk: F/U in 2-3days
--- NOTE | 2020-07-21 09:31 | NUR ---
Dietitian Recommendations * Recommend continuing cardiac, pureed diet (ONS Ensure Enlive TID provided; 1050 kcal/day, 60 gm protein/day) * Encourage increase PO intakes during meal times. Please see Nutrition F/U for details. EP,RD
[2020-07-21] MEDS: VALPROIC ACID 250 MG CAPSULE (DEPAKENE) PO SCH ×2 (09:38→20:58)
[2020-07-21] MEDS: cefTRIAXone 1 GM in D5W 50 ML IV SCH (09:38)
[2020-07-21] MEDS: OLANZapine 5 MG TABLET PO SCH ×2 (09:38→20:57)
[2020-07-21] MEDS: MUPIROCIN 2% TOPICAL OINTMENT 22 GM NS SCH ×2 (09:39→21:07)
[2020-07-21] MEDS: BRIMONIDINE TARTRATE 0.2% 5 mL EYE DROPS OP SCH ×2 (09:39→21:00)
--- NOTE | 2020-07-21 09:40 | NUR ---
NURSE NOTE PATIENT INCONTINENT OF BOWEL, LARGE BM, CLEANSED MIMA AREA, CHANGED LINENS, APPLIED Z GUARD, REPOSITIONED PATIENT, ADMINISTERED MEDICATIONS, TOLERATED WELL, NO SIGNS OF DISTRESS NOTED
[2020-07-21] MEDS: HEPARIN SODIUM,PORCINE 5,000 UNITS/ML VIAL SUBCUT SCH ×2 (09:43→21:16)
--- NOTE | 2020-07-21 10:30 | NUR ---
NURSE NOTE SPOKE WITH PATIENTS , ADDISON, [facility], EXPLAINED THAT I WOULD HAVE AEROBICS INSTRUCTOR CALL HER BACK
--- NOTE | 2020-07-21 10:40 | NUR ---
NURSE NOTE SPOKE WITH FIELD TEST ENGINEER, INFORMED THEM THAT PATIENTS DOES NOT WANT PATIENT TO RETURN TO [facility], THEY WILL CALL HER
--- NOTE | 2020-07-21 10:50 | NUR ---
NURSE NOTE SPOKE WITH METAL MOULDER, WISHES TO SPEAK WITH DR CORRAL REGARDING NOT RETURNING TO [facility]
--- NOTE | 2020-07-21 11:14 | NUR ---
NURSE NOTE INFORMED DR MORALES REGARDING PATIENTS REQUEST TO SPEAK WITH HIM, HE STATED HE WILL CALL HER TODAY, INFORMED
[2020-07-21 12:44] VITALS: BP_SYST 153
--- NOTE | 2020-07-21 13:02 | NUR ---
Side Stitcher: [facility] is setting up transfer to [facility]. Pt. is on a 5150 [facility] made arrangements for pts. transfer to [facility] today. Pt. is on a 5150 hold. There was no bed assignment at the time of this transfer prep. Rn stated this will be a BLS. This was arranged on Will Call. GOLD BU[employer]ER will remain available as needed.
--- NOTE | 2020-07-21 13:33 | NUR ---
Spoke w/ patient;s , Izabella. She does not want her to return to [facility] Inpatient psych unit. She wants patient to return to [facility]. She was given the phone # for Dr Barriga to discuss patient's plan of care.
--- NOTE | 2020-07-21 13:45 | NUR ---
NURSE NOTE PROVIDED WOUND CARE, PICTURES TAKEN, SEE MST SHIFT ASSESSMENT REMOVED DYKES, PATIENT TOLERATED WELL, IV catheter removed, intact and dressing applied, no active bleeding. DISCONTINUED AND REMOVED RESTRAINTS, PATIENT TOLERATED ALL PROCEDURES WELL, NO SIGNS OF DISTRESS NOTED, REPOSITIONED PATIENT
--- NOTE | 2020-07-21 15:45 | NUR ---
[facility] SPOKE WITH MIKAEL AT [facility], PATIENT WILL GO TO BED 53B, MIKAEL REQUESTED PICKUP AFTER 1800
--- NOTE | 2020-07-21 16:06 | NUR ---
TRANSPORTATION ARRANGEMENT CALLED FOR PICKUP AT 1830
[2020-07-21 16:22] VITALS: BP_SYST 118
[2020-07-21 16:34] VITALS: BP_SYST 118
--- NOTE | 2020-07-21 17:30 | NUR ---
NURSE NOTE CALLED [facility], GAVE REPORT TO MADELIN, PATIENT TO GO TO BED 53B.
--- NOTE | 2020-07-21 18:00 | NUR ---
nurse note patient found sitting on floor holding onto bed rails, by monitor technician tech. assessed patient, patient continues to be confused and non verbal, no injuries observed, returned to bed, obtained vs, patient incontinent of bowel, cleansed patt area, changed linens, repositioned patient. Paged Dr. Reveles and informed patients Izabella Addendum: 07/21/20 at 2048 by Braulio Chavez RN entered incorrect time should be 1844
--- NOTE | 2020-07-21 18:26 | NUR ---
NURSE NOTE PATIENT INCONTINENT OF BOWEL AND BLADDER, PROVIDED MIMA CARE, CHANGED LINENS, REPOSITIONED PATIENT, RESPIRATIONS EVEN, NON LABORED, BED IN LOW AND LOCKED POSITION, CALL LIGHT WITHIN REACH, BED ALARM ON. NO SIGNS OF DISTRESS NOTED Addendum: 07/21/20 at 2014 by Braulio Chavez RN entered incorrect time, should be [id number]
--- NOTE | 2020-07-21 19:08 | NUR ---
Patricia Reveles s/w [employer]
--- NOTE | 2020-07-21 19:20 | NUR ---
nurse note informed Dr. Reveles of unwitnessed fall, new orders received Addendum: 07/21/20 at 2019 by Braulio Chavez RN discharged bindu
[2020-07-21 20:00] VITALS: BP_SYST 112
--- NOTE | 2020-07-21 20:00 | NUR ---
INITIAL NOTES PATIENT IS STABLE AND LAYING IN BED. NO S/S OF RESPIRATORY DISTRESS NOTED. CALL LIGHT IN REACH. BED IS LOCKED, ALARMED, AND AT THE LOWEST POSITION. PLAN OF CARE IS DISCUSSED WITH PATIENT. PATIENT UNSUCCESSFULLY DEMONSTRATES USAGE OF CALL LIGHT. WILL CONTINUE TO MONITOR. FALL, SAFETY, ASPIRATION, RESPIRATORY, CONTACT, AND RESTRAINTS PRECAUTIONS/PROTOCOL WILL BE IN PLACE THROUGHOUT THE SHIFT. Addendum: 07/21/20 at 2323 by Pipe Vázquez RN PT HAS NO IV SITE AT THIS TIME.
[2020-07-21] MEDS: ATORVASTATIN 20 MG TABLET PO SCH (20:57)
[2020-07-21] MEDS: traZODone HCL 50 MG TABLET (DESYREL) PO SCH (20:57)
[2020-07-21] MEDS: clonazePAM 0.5 MG TABLET PO SCH (20:58)
--- NOTE | 2020-07-21 22:00 | NUR ---
PATIENT WAS CLEANED, CHANGED, AND REPOSITION FOR COMFORT. PATIENT IS STABLE AND SHOWS NO S/S OF RESPIRATORY DISTRESS NOTED. CALL LIGHT IN REACH.
--- NOTE | 2020-07-21 23:55 | NUR ---
ENDORSEMENT OF CARE. SBAR REPORT ENDORSED TO ANISA PEREIRA. PATIENT IS STABLE AND LAYING IN BED. NO S/S OF RESPIRATORY DISTRESS NOTED. CALL LIGHT IN REACH.
--- NOTE | 2020-07-21 23:55 | NUR ---
COMMUNICATED WITH [facility]) ABOUT DC.
--- NOTE | 2020-07-21 23:56 | NUR ---
TRANSFER OF CARE PATIENT AOX0, UNABLE TO FOLLOW ON COMMANDS, CONFUSED. ON BILATERAL SOFT WRIST RESTRAINTS, NO INJURY NOTED. NO SIGNS OF RESPIRATORY DISTRESS AND DISCOMFORT NOTED. ON ROOM AIR, 02 SATURATION OF 98%. NO IV SITE NOTED, WILL TRY TO RE INSERT. BED LOCKED AND IN LOWEST POSITION. BED ALARM ON. SAFETY AND ISOLATION PRECAUTIONS IN PLACE. WILL CONTINUE TO MONITOR PATIENT
[2020-07-22 00:18] VITALS: BP_SYST 116
--- NOTE | 2020-07-22 02:06 | NUR ---
RN ROUNDS PATIENT ASLEEP AT THIS TIME, NO SIGNS OF RESPIRATORY DISTRESS AND DISCOMFORT NOTED. BREATHING EVEN AND UNLABORED. ON ROOM AIR, TOLERATING WELL. ON BILATERAL SOFT WRIST RESTRAINTS, NO INJURY NOTED. SAFETY PRECAUTIONS IN PLACE. WILL CONTINUE TO MONITOR.
[2020-07-22] MEDS: D5/0.45 NS 1,000 ML IV SCH (04:00)
--- NOTE | 2020-07-22 04:00 | NUR ---
IV REINSERTION IV REINSERTION DONE AT THIS TIME ON THE RIGHT HAND #24. PATIENT TOLERATED WELL. NEW IVF HUNG AT THIS TIME.
--- NOTE | 2020-07-22 04:10 | NUR ---
NEW IVF HUNG/ MIMA CARE/ NURSE NOTE NEW IVF HUNG AT THIS TIME AND MIMA CARE DONE WITH HELP OF ANOTHER RN. PATIENT UNCOOPERATIVE, TRIED TO KICK AND SCRATCH PRIMARY NURSE AND TRIED TO GET OUT OF BED. RE ORIENTED PATIENT BUT UNABLE TO FOLLOW ON COMMANDS. RE ATTACHED BACK TO BILATERAL SOFT WRIST RESTRAINTS. IVF INFUSING WELL. SAFETY PRECAUTIONS IN PLACE. WILL CONTINUE TO MONITOR PATIENT
--- NOTE | 2020-07-22 06:40 | NUR ---
CLOSING NOTE PATIENT ASLEEP AT THIS TIME. NO SIGNS OF RESPIRATORY DISTRESS AND DISCOMFORT NOTED. BREATHING EVEN AND UNLABORED. ON ROOM AIR, TOLERATING WELL. ON BILATERAL SOFT WRIST RESTRAINTS, NO INJURY NOTED. IVF INFUSING WELL. BED LOCKED AND IN LOWEST POSITION. SAFETY PRECAUTIONS IN PLACE. BED ALARM ON. ALL NEEDS MET THROUGHOUT THE SHIFT. WILL CONTINUE TO MONITOR PATIENT UNTIL ENDORSE TO ONCOMING SHIFT NURSE FOR CONTINUITY OF CARE.
--- NOTE | 2020-07-22 07:48 | NUR ---
AM ROUNDS: PATIENT ON BILATERAL SOFT WRIST RESTRAINT ON LE. MAINTAINED CONTACT ISOLATION FOR MRSA NARES. BED ALARM ON. PATIENT RESTING. BED LOCKED AT LOWEST POSITION. CONTINUE TO MONITOR.STABLE.
[2020-07-22 08:34] VITALS: BP_SYST 123
--- NOTE | 2020-07-22 08:42 | NUR ---
Loading Checker Notes/Psych transfer: Per Amarjit, Intake from [facility]- pt is going to room 53B under Dr. Funes/Dr. Reveles. Addendum: 07/22/20 at 09 by Erich LOZADA nurse to nurse report: [phone] Joyner RN notified. Addendum: 07/22/20 at 0951 by Erich Harley MSW [facility] with pick-up time 1PM. Anya LANGE aware.
[2020-07-22] MEDS: OLANZapine 5 MG TABLET PO SCH (08:44)
[2020-07-22] MEDS: MUPIROCIN 2% TOPICAL OINTMENT 22 GM NS SCH (08:44)
[2020-07-22] MEDS: HEPARIN SODIUM,PORCINE 5,000 UNITS/ML VIAL SUBCUT SCH (08:44)
[2020-07-22] MEDS: VALPROIC ACID 250 MG CAPSULE (DEPAKENE) PO SCH (08:45)
[2020-07-22] MEDS: cloNIDine HCL 0.1 MG/24 HR PATCH.TDWK TD SCH (08:47)
[2020-07-22] MEDS: BRIMONIDINE TARTRATE 0.2% 5 mL EYE DROPS OP SCH (08:49)
--- NOTE | 2020-07-22 09:37 | NUR ---
VERIFIED ORDERS FOR DC: PATIENT SEEN BY DR KUNZ IN THE ROOM. WITH ORDERS OKAY TO BE DISCHARGE TO [facility] WITH SAME ORDERS. NO ACUTE DISTRESS.
[2020-07-22 10:56] VITALS: BP_SYST 123
--- NOTE | 2020-07-22 11:24 | NUR ---
RN ROUNDS: PATIENT MOVES A LOT. ON BILATERAL SOFT WRIST RESTRAINT ON. STABLE.
[2020-07-22 12:00] VITALS: BP_SYST 123
--- NOTE | 2020-07-22 12:17 | NUR ---
REPORT NOTES: REPORT GIVEN TO DELANEY GUEVARA FROM [facility].
--- NOTE | 2020-07-22 13:35 | NUR ---
DC NOTES: TRANSFER PACKETS GIVEN TO [facility] STAFF. IV REMOVED BY HILLARY LANGE,DRY GAUZE APPLIED,NO BLEEDING NOTED.NO BELONGINGS AT THE BEDSIDE. ON HOLD BY JOSIANE MAC,ORIGINAL COPY INSIDE THE TRANSFER PACKETS.NO ACUTE DISTRESS. [facility] TRANSPORTED PATIENT TO [facility] IN STABLE CONDITION.
[2020-07-23] MEDS ORDERED: LORA-258 PO (22:37)
== END 2020-07-22 14:18 | DRG 682 ==
LOC: SED 01:11 → STU 03:29 → SMU 07-16 10:07
PROVIDERS: ADMIT General Practice; ATTEND General Practice
DX: N17.0 Acute kidney failure with tubular necrosis (principal); G93.41 Metabolic encephalopathy; E43 Unspecified severe protein-calorie malnutrition; N39.0 Urinary tract infection, site not specified; E87.0 Hyperosmolality and hypernatremia; F02.81 Dementia in other diseases classified elsewhere, unspecified severity, with behavioral disturbance; M62.82 Rhabdomyolysis; E87.1 Hypo-osmolality and hyponatremia; E86.0 Dehydration; E86.1 Hypovolemia; I95.9 Hypotension, unspecified; E87.8 Other disorders of electrolyte and fluid balance, not elsewhere classified; G30.9 Alzheimer's disease, unspecified; I12.9 Hypertensive chronic kidney disease with stage 1 through stage 4 chronic kidney disease, or unspecified chronic kidney disease; N18.9 Chronic kidney disease, unspecified; Z20.828 Contact with and (suspected) exposure to other viral communicable diseases; Z79.899 Other long term (current) drug therapy; Z86.73 Personal history of transient ischemic attack (TIA), and cerebral infarction without residual deficits; Z87.891 Personal history of nicotine dependence; Z74.01 Bed confinement status; Z68.23 Body mass index [BMI] 23.0-23.9, adult
CPT/HCPCS: 36415; 71045; 76770; 80048; 80053; 80164-TC; 81000-TC; 82550-TC; 82553-TC; 83036; 83735-TC; 83880; 83930-TC; 83935-TC; 84484; 85025; 87081; 93005; 93306; 96360; 96372; 99285; A6209; G0378; J0696; J1630; J1644; J2060; J7060

== ENCOUNTER 2020-07-23 20:48 | Inpatient (IN) | payer OTHER, MEDICARE, SELFPAY ==
[~2020-07-23] VITALS: Ht 175.3 cm; Wt 59.9 kg
[~2020-07-23 20:48] MED LIST: ACET325T PO; ALPHAGAN1 OP; CAT1PAT TD; LIP20 PO; LORA-258 PO; MOM PO; MV-M1TAB2 PO; QUET50TA PO; SER25 PO; TRAZ-250 PO; XALEYE OP; ZOLP5TAB2 PO
--- NOTE | 2020-07-23 20:48 | NUR ---
Patient to ER bed 5 to gown for evaluation. Side rails up.
[2020-07-23 20:50] VITALS: BP_SYST 112
--- NOTE | 2020-07-23 20:50 | NUR ---
ER at bedside examining patient.
--- NOTE | 2020-07-23 20:52 | NUR ---
Pt presents to the ER from [facility] w/ hx of dementia. Pt sent here for C diff in stools and agitation. Pt is Alert and oriented to self, stimulated by pain. Pt non verbal. NKA.
--- NOTE | 2020-07-23 20:53 | NUR ---
Patient's code status is DNR paperwork completed and placed in chart. POLST FORM PROVIDED BY [facility].
[2020-07-23] MEDS ORDERED: NS 500 ML IV ONE (21:00)
--- NOTE | 2020-07-23 21:25 | NUR ---
MRSA AND COVID SWAB SENT TO LAB
--- NOTE | 2020-07-23 21:30 | NUR ---
RADIOLOGY AT BEDSIDE.
[2020-07-23 21:39] LABS: BILIRUBIN,URINE NEGATIVE (NEGATIVE); BLOOD, URINE NEGATIVE (NEGATIVE); CLARITY/URINE CLEAR (CLEAR); COLOR,URINE YELLOW (YELLOW); GLUCOSE,URINE NEGATIVE (NEGATIVE); KETONES,URINE NEGATIVE (NEGATIVE); LEUKOCYTE ESTERASE ,URINE NEGATIVE (NEGATIVE); NITRITE, URINE NEGATIVE (NEGATIVE); PROTEIN URINE 1+ (NEGATIVE); UROBILINOGEN,URINE 0.2 (0.2-1.0)
[2020-07-23 21:50] LABS: BACTERIA,URINE FEW /HPF (None Seen); MUCUS,URINE None Seen /LPF (None Seen); RBC,URINE NONE SEEN /HPF (0-3); WBC,URINE 0-3 /HPF (0-3)
--- NOTE | 2020-07-23 21:55 | NUR ---
# 22 gauge angiocath placed to R WRIST . Use of asceptic technique. Opsite placed over site. Blood return noted. Blood for lab drawn from site. Flushed with 10 cc of normal saline. No evidence of infiltration noted. Patient tolerated well.
[2020-07-23 22:03] LABS: BASOPHILS % (AUTO) 0.2 % (0.0-2.0); EOSINOPHILS % (AUTO) 0.2 % (0.0-4.0); HEMATOCRIT 35.8 % (36-54); HEMOGLOBIN 11.9 g/dL (14.0-18.0); LYMPHOCYTES # (AUTO) 1.4 K/uL (1.0-5.5); LYMPHOCYTES % (AUTO) 11.9 % (20.5-51.5); MEAN CORPUSCULAR HEMOGLOBIN 32 pg (27-31); MEAN CORPUSCULAR HGB CONC 33 % (32-36); MEAN CORPUSCULAR VOLUME 97 fL (79.0-98.0); MONOCYTES # (AUTO) 1.3 K/uL (0.0-1.0); MONOCYTES % (AUTO) 11.2 % (1.7-9.3); NEUTROPHILS # (AUTO) 9.1 K/uL (1.8-7.7); NEUTROPHILS % (AUTO) 76.5 % (40.0-70.0); PLATELET COUNT (AUTO) 258 K/uL (130-430); RED BLOOD CELL COUNT(AUTO) 3.67 MIL/uL (4.2-6.2); RED CELL DISTRIBUTION WIDTH 13.9 % (9.0-15.0)
[2020-07-23 22:13] LABS: ANION GAP 12 (5-15); CALCIUM 8.7 mg/dL (8.4-11.0); CHLORIDE 108 mmol/L (98-107); CREATININE 1.74 mg/dL (0.55-1.30); GLUCOSE 93 mg/dL (70-99); POTASSIUM 3.3 mmol/L (3.5-5.1); SODIUM SERUM 144 mmol/L (136-145); UREA NITROGEN, BLOOD 26 mg/dL (8-21)
[2020-07-23 22:16] LABS: INR 1.1 (0.80-1.20); PROTHROMBIN TIME 10.9 SECS (9.5-12.5)
[2020-07-23 22:18] LABS: ALANINE AMINOTRANSFERASE 57 U/L (12-78); ALBUMIN 2.5 g/dL (3.4-4.8); ASPARTATE AMINOTRANSFERASE 42 U/L (10-37); TOTAL BILIRUBIN 0.3 mg/dL (0.0-1.0)
--- NOTE | 2020-07-23 22:30 | NUR ---
Patient will be admitted to care of DR KUNZ. Admitted to MEDICAL SURGICAL unit. Will go to room 106A. Belongings list completed. Complete and up to date summary report printed. SBAR report to be given at bedside with opportunity for questions.
--- NOTE | 2020-07-23 22:33 | NUR ---
C DIFF STOOL NOT ABLE TO BE OBTAINED, [facility] SURG[facility]IE LANGE AWARE. CARE ENDORESED TO OBTAIN SPECIMEN
[2020-07-23] MEDS ORDERED: LORA-258 PO (22:37)
[2020-07-23 23:04] VITALS: BP_SYST 135
--- NOTE | 2020-07-23 23:04 | NUR ---
ADMISSION NOTE Received patient from ER via gurney. Patient admitted with diagnosis of CLOSTRIDIUM DIFICILE. Patient is awake, alert, oriented X 1. Patient oriented to hospital room, call light, toileting, pain management and safety-teach back done. Patient informed that LANIE will be HIS nurse and that their room number is 106A. Personal belongings checked and Belongings List documented. Call light within reach.
[2020-07-23] MEDS: NACL 0.9% 1,000 ML IV SCH (23:24)
[2020-07-23 23:30] VITALS: BP_SYST 134
--- NOTE | 2020-07-24 | NUR ---
pt.assessed.v/s assessed values w/in normal limits.per flacc pain mgx pt.absent facial grimaces/body posturing.pt.presents affect;restless;aggressive.loc:confused.pt.attempts to strike nsg.restraints ordered per ;a.wrist;bilateral applied.pt.assessed for cleanliness.pt.repositioned. cutaneous integrity presents scabs,ecchymosis,erythema;photos taken.iv fluids initiated.genesis;shinping;rn/admit assisted w pt. care/photos.general status stable.respiratory status stable;unlabored.call light/telephone placed w/in access of the pt.
--- NOTE | 2020-07-24 02:00 | NUR ---
pt.assessed.restraints assessed in place.skin/circulation assessed wnl.iv access intact;patent iv fluids infusing. pt assessed for cleanliness.pt.repositioned.per flacc pain mgx pt.absent facial grimaces/body posturing.general status stable.respiratory status stable;unlabored.call light/telephone placed w/in access of the pt.
--- NOTE | 2020-07-24 04:00 | NUR ---
pt.assessed.pt.restraints assessed in place.skin/circulation wnl.iv access intact;patent iv fluids infusing.pt.assessed for cleanliness.pt.repositioned. per flacc pain mgx pt.absent facial grimaces/body posturing.general status stable.respiratory status stable;unlabored.call light/telephone placed w/in access of the pt.
--- NOTE | 2020-07-24 06:12 | NUR ---
pt.assessed.pt.assessed for cleanliness.pt.repositioned.restraints in place.skin/circulation assessed wnl.iv access intact;patent iv fluids infusing. per flacc pain mgx pt.absent facial grimaces/body posturing.general status stable.respiratory status stable;unlabored.call light/ telephone placed w/in access of the pt.
[2020-07-24 08:00] VITALS: BP_SYST 136
--- NOTE | 2020-07-24 08:00 | NUR ---
Patient is awake oriented to his name but very forgetful and non compliant with safety issues kicking trying to get out of bed ,on bilateral wrist restraints due to safety issues, assisted in feeding aspiration precaution , poor appetite but tolerate po well, needs attended
[2020-07-24] MEDS ORDERED: VANCOMYCIN HCL Non-Formulary 250 MG CAPSULE PO SCH (09:00)
[2020-07-24] MEDS: VANCOMYCIN HCL ORAL SOLUTION 250 MG/5 ML, 80 ML PO SCH ×4 (09:16→20:31)
[2020-07-24] MEDS: NACL 0.9% 1,000 ML IV SCH (09:19)
--- NOTE | 2020-07-24 10:00 | NUR ---
Comfort skin care Had a bowel movement moderate amount mushy stool, perineal care given mild redness perianal area skin cream barrier applied,aspiration/fall precaution initiated, repositioned supported by pillows, Spoke to Izabella is aware and agreed regarding bilateral wrist restrains due to risk of falling and removing IV lines.
[2020-07-24 11:33] VITALS: BP_SYST 124
--- NOTE | 2020-07-24 13:00 | NUR ---
Patient awake but confused ,Assisted in feeding mechanical soft finely chap tolerates well with out aspiration.
--- NOTE | 2020-07-24 15:10 | NUR ---
GI/SKIN CARE Patient had loose stool , perineal care given mild redness to perianal area skin cream barrier applied , repositioned , kept on bilateral wrist restraints patient trying to get out of bed , frequent monitoring.
[2020-07-24 15:43] VITALS: BP_SYST 133
--- NOTE | 2020-07-24 17:45 | NUR ---
Patient is combative refused to eat , kept with IV hydration.
--- NOTE | 2020-07-24 19:30 | NUR ---
OPENING NOTES RECEIVED CARE OF PT AND SBAR REPORT. PT IS AAOX1, PT RESTING IN BED, CHEST RISE AND FALL NOTED. NONLABORED BREATHING NOTED, ON ROOM AIR, TOLERATING WELL. NO S/S OF PAIN OR DISTRESS NOTED. IV LINE INTACT AND PATENT, NO SIGNS OF INFILTRATION NOTED, FLUIDS RUNNING ORDERED.SOFT BILATERAL WRIST RESTRAINTS INTACT, NO SIGNS OF INJURY NOTED. BED LOCKED AND IN LOWEST POSITION. ALL NEEDS MET. CALL LIGHT IN REACH. FALL, ASPIRATION, AND CONTACT PRECAUTIONS IN PLACE. CONTINUE TO MONITOR.
[2020-07-24 20:00] VITALS: BP_SYST 128
--- NOTE | 2020-07-24 20:31 | NUR ---
MEDICATION PASS SCHEDULED PO VANCO GIVEN ORDERED. PT COOPERATIVE IN TAKING MEDICATION AT THIS TIME. SWALLOWED MEDICATION WITH NO DIFFICULTY. SAFETY, ASPIRATION, AND ISOLATION PRECAUTIONS MAINTAINED. WILL MONITOR.
--- NOTE | 2020-07-24 23:52 | NUR ---
INCONTINENCE CARE PT INCONTINENT OF URINE, PT CLEANED AND REPOSITIONED FOR COMFORT. BILATERAL SOFT WRIST RESTRAINTS TAKEN OFF AND REAPPLIED ORDERED. PT COMBATIVE DURING INCONTINENCE CARE. SAFETY AND ISOLATION PRECAUTIONS MAINTAINED. WILL MONITOR.
[2020-07-25 00:18] VITALS: BP_SYST 133
--- NOTE | 2020-07-25 01:53 | NUR ---
RN ROUNDS PATIENT ASLEEP AT THIS TIME, NO SIGNS OF RESPIRATORY DISTRESS AND DISCOMFORT NOTED. BREATHING EVEN AND UNLABORED. ON ROOM AIR, TOLERATING WELL. ON BILATERAL SOFT WRIST RESTRAINTS, NO SIGNS OF INJURY NOTED. SAFETY AND CONTACT PRECAUTIONS IN PLACE. WILL CONTINUE TO MONITOR.
--- NOTE | 2020-07-25 04:00 | NUR ---
INCONTINENCE CARE PT INCONTINENT OF BOWELS, LOOSE LIQUID STOOL NOTED. PT CLEANED AND REPOSITIONED FOR COMFORT. BILATERAL SOFT WRIST RESTRAINTS TAKEN OFF AND REAPPLIED ORDERED. PT COMBATIVE DURING INCONTINENCE CARE. SAFETY AND ISOLATION PRECAUTIONS MAINTAINED. WILL MONITOR.
[2020-07-25] MEDS: NACL 0.9% 1,000 ML IV SCH ×2 (05:58→22:40)
--- NOTE | 2020-07-25 06:12 | NUR ---
CLOSING NOTES PT IS AAOX1, PT RESTING IN BED, BILATERAL CHEST RISE AND FALL NOTED. NONLABORED BREATHING ON ROOM AIR, TOLERATING WELL. NO S/S OF PAIN OR DISTRESS NOTED. IV LINE INTACT AND PATENT, NO SIGNS OF INFILTRATION NOTED, FLUIDS RUNNING ORDERED.SOFT BILATERAL WRIST RESTRAINTS INTACT, NO SIGNS OF INJURY NOTED. BED LOCKED AND IN LOWEST POSITION. ALL NEEDS MET. CALL LIGHT IN REACH. FALL, ASPIRATION, AND CONTACT PRECAUTIONS IN PLACE. WILL CONTINUE TO MONITOR UNTIL PT CARE IS ENDORSED TO DAY SHIFT RN.
[2020-07-25 08:00] VITALS: BP_SYST 149
--- NOTE | 2020-07-25 08:00 | NUR ---
CONFUSED,SLEEPING QUIETLY IN BED,IVF CONTINUE INFUSING,PT IS COMBATIVE AND TRIED TO PULL OUT IV,REFUSED BREAKFAST,TOTAL CARE PROVIDED,SOFT RESTRAINTS ON BOTH WRISTS TO PREVENT REMOVING IV LINE AND SELF INJURY TOTAL CARE PROVIDED.SAFETY MAINTAINED.CONTINUE TO MONITOR PT.
[2020-07-25] MEDS: VANCOMYCIN HCL ORAL SOLUTION 250 MG/5 ML, 80 ML PO SCH ×4 (09:24→20:09)
[2020-07-25] MEDS ORDERED: ZOLPIDEM TARTRATE 5 MG TABLET PO PRN (09:45)
[2020-07-25] MEDS ORDERED: LORazepam 1 MG TABLET PO PRN (09:45)
[2020-07-25] MEDS ORDERED: ACETAMINOPHEN 325 MG TABLET PO PRN (09:45)
[2020-07-25] MEDS ORDERED: cloNIDine HCL 0.1 MG/24 HR PATCH.TDWK TD ONE (10:00)
[2020-07-25] MEDS ORDERED: BRIMONIDINE TARTRATE 0.2% 5 mL EYE DROPS OP ONE (10:00)
[2020-07-25] MEDS ORDERED: QUEtiapine FUMARATE 25 MG TABLET PO ONE (10:00)
--- NOTE | 2020-07-25 10:00 | NUR ---
CAME AND SEEN PT,ORDERS RECEIVED AND CARRIED OUT.
[2020-07-25 11:26] VITALS: BP_SYST 153
--- NOTE | 2020-07-25 12:00 | NUR ---
AFEBRILE,VSS,PT REMAINS CONFUSED AND NONCOMPLIANT OF CARE.HOURLY ROUNDS MADE,SAFETY MAINTAINED.
--- NOTE | 2020-07-25 14:00 | NUR ---
INCONTINENT OF LOOSE BM,POOR PO INTAKE,CONTINUE IVF,GIVE VANCOMYCIN 250MG PO PER DR ORDER FOR C DIFF.
--- NOTE | 2020-07-25 15:21 | NUR ---
Dietitian Recommendations * Recommend mechanical soft diet, Banatrol BID, Ensure Enlive TID (ONS provides 1050 kcal/day, 60 gm protein/day) NEEL RD Please refer to Nutrition Assessment for details. Addendum: 07/25/20 at [address] Amended: Links added.
[2020-07-25 15:29] VITALS: BP_SYST 158
[2020-07-25] MEDS: BRIMONIDINE TARTRATE 0.2% 5 mL EYE DROPS OP SCH ×2 (15:56→20:10)
--- NOTE | 2020-07-25 16:00 | NUR ---
VSS,PT SLEEPING QUIETLY IN BED,OCCASIONALLY VERBALIZED CONFUSED SPEECH,SAFETY MAINTAINED.
[2020-07-25] MEDS: QUEtiapine FUMARATE 25 MG TABLET PO SCH ×2 (17:52→20:10)
--- NOTE | 2020-07-25 18:00 | NUR ---
PT REFUSED TO HAVE DINNER,BUT TOOK PO MEDS CRUSHED AND MIXED WITH PUDDING,INCONTINENT CARE PROVIDED IVF CONTINUE INFUSING,SOFT RESTRAINTS ON BOTH WRISTS CHECKED NO COMPLICATIONS OBSERVED.
--- NOTE | 2020-07-25 19:20 | NUR ---
OPENING NOTES RECEIVED CARE OF PT AND SBAR REPORT. PT IS AAOX1, PT RESTING IN BED, CHEST RISE AND FALL NOTED. NONLABORED BREATHING NOTED, ON ROOM AIR, TOLERATING WELL. NO S/S OF PAIN OR DISTRESS NOTED. IV LINE INTACT AND PATENT, NO SIGNS OF INFILTRATION NOTED, FLUIDS RUNNING ORDERED.SOFT BILATERAL WRIST RESTRAINTS INTACT, NO SIGNS OF INJURY NOTED. BED LOCKED AND IN LOWEST POSITION. ALL NEEDS MET. CALL LIGHT IN REACH. FALL, ASPIRATION, AND CONTACT PRECAUTIONS IN PLACE. WILL CONTINUE TO MONITOR.
[2020-07-25 20:00] VITALS: BP_SYST 154
[2020-07-25] MEDS: ATORVASTATIN 20 MG TABLET PO SCH (20:10)
[2020-07-25] MEDS: MILK OF MAGNESIA 30 ML UDC PO SCH (20:10)
[2020-07-25] MEDS: LATANOPROST 2.5 ML DROPS (XALATAN) OP SCH (20:10)
--- NOTE | 2020-07-25 20:10 | NUR ---
MEDICATION PASS SCHEDULED MEDICATIONS GIVEN ORDERED. PO MEDICATIONS CRUSHED AND GIVEN WITH APPLESAUCE. PT COOPERATIVE IN TAKING MEDICATION AT THIS TIME. SWALLOWED MEDICATION WITH NO DIFFICULTY. SAFETY, ASPIRATION, AND ISOLATION PRECAUTIONS MAINTAINED. WILL MONITOR. Addendum: 07/25/20 at 2108 by Nazia Lawrence RN AMMEND: MILK OF MAGNESIA HELD DUE TO PT'S DIARRHEA. ALPHAGAN 0.2% OPTIC SOLUTION NOT GIVEN DUE TO MEDICATION NOT BEING AVAILABLE AT THIS TIME. WILL INFORM DAY SHIFT RN IN THE MORNING.
--- NOTE | 2020-07-25 22:42 | NUR ---
IVF BAG CHANGE NEW BAG OF NS HUNG AND SET TO INFUSE AT ORDERED RATE. NO S/S OF INFILTRATION AT IV SITE NOTED. SAFETY AND ISOLATION PRECAUTIONS MAINTAINED. WILL MONITOR.
--- NOTE | 2020-07-26 00:05 | NUR ---
RN ROUNDS PT RESTING IN BED. BREATHING EVEN AND UNLABORED TO ROOM AIR. PT HAS BILATERAL SOFT WRIST RESTRAINTS, NO SIGNS OF INJURY NOTED. BED ALARM ON, LOCKED IN LOWEST POSITION. CALL LIGHT WITHIN REACH. SIDE RAILS UP X3. SAFETY, ASPIRATION, AND CONTACT ISOLATION PRECAUTIONS MAINTAINED. WILL MONITOR. Addendum: 07/27/20 at 0358 by Mony Vázquez RN DISCARD. WRONG DATE AND TIME
[2020-07-26 00:48] VITALS: BP_SYST 141
[2020-07-26 06:47] LABS: BASOPHILS % (AUTO) 0.3 % (0.0-2.0); EOSINOPHILS # (AUTO) 0.2 K/uL (0.0-0.4); EOSINOPHILS % (AUTO) 2.1 % (0.0-4.0); HEMATOCRIT 34.9 % (36-54); HEMOGLOBIN 11.5 g/dL (14.0-18.0); LYMPHOCYTES # (AUTO) 1.6 K/uL (1.0-5.5); LYMPHOCYTES % (AUTO) 17.7 % (20.5-51.5); MEAN CORPUSCULAR HEMOGLOBIN 32 pg (27-31); MEAN CORPUSCULAR HGB CONC 33 % (32-36); MEAN CORPUSCULAR VOLUME 97 fL (79.0-98.0); MONOCYTES # (AUTO) 1.1 K/uL (0.0-1.0); MONOCYTES % (AUTO) 12.9 % (1.7-9.3); NEUTROPHILS # (AUTO) 5.9 K/uL (1.8-7.7); PLATELET COUNT (AUTO) 266 K/uL (130-430); RED BLOOD CELL COUNT(AUTO) 3.58 MIL/uL (4.2-6.2); RED CELL DISTRIBUTION WIDTH 13.8 % (9.0-15.0); WHITE BLOOD COUNT (AUTO) 8.8 K/uL (4.8-10.8)
[2020-07-26 06:55] LABS: ALANINE AMINOTRANSFERASE 31 U/L (12-78); ANION GAP 11 (5-15); ASPARTATE AMINOTRANSFERASE 26 U/L (10-37); CHLORIDE 117 mmol/L (98-107); CREATININE 1.34 mg/dL (0.55-1.30); GLUCOSE 76 mg/dL (70-99); POTASSIUM 3.8 mmol/L (3.5-5.1); SODIUM SERUM 150 mmol/L (136-145); TOTAL BILIRUBIN 0.4 mg/dL (0.0-1.0); UREA NITROGEN, BLOOD 15 mg/dL (8-21)
[2020-07-26 08:00] VITALS: BP_SYST 125
--- NOTE | 2020-07-26 08:00 | NUR ---
OPENING NOTE PATIENT AWAKE AND ALERT IN BED. NO DISTRESS NOTED. WILL CONTINUE TO MONITOR.
--- NOTE | 2020-07-26 10:00 | NUR ---
PATIENT REFUSED BREAKFAST. TOOK PILLS AND TOLERATED WELL. REPOSITIONED FOR COMFORT. WILL CONTINUE TO MONITOR.
[2020-07-26] MEDS: VANCOMYCIN HCL ORAL SOLUTION 250 MG/5 ML, 80 ML PO SCH ×4 (10:48→21:36)
[2020-07-26] MEDS: QUEtiapine FUMARATE 25 MG TABLET PO SCH ×3 (10:48→21:36)
[2020-07-26] MEDS: BRIMONIDINE TARTRATE 0.2% 5 mL EYE DROPS OP SCH ×3 (10:49→21:38)
--- NOTE | 2020-07-26 11:26 | NUR ---
Wound Evaluation: Wound Consult ordered for Low Moo Score. Patient evaluated for a low Moo score of 13. Patient was awake, alert, oriented x 1 and received in a Miles Bed with an IsoFlex YU mattress with low air-loss therapy. Patient needs to be turned in bed. Skin assessment: 1. Sacral/buttocks areas: IAD with blanchable red erythema, present on admission. Recommend: Cleanse involved areas with mild soap and water. Pat dry. Apply Calmoseptine cream to involved areas. Perform site care 4 times daily as needed for soiling. 2. Left upper extremity: Multiple areas of ecchymosis with a few scattered scabs, present on admission. 3. Right upper extremity: Multiple areas of ecchymosis with a few scattered scabs and erythema on the forearm, present on admission. Recommend: No dressings needed. Continue to monitor sites every shift. 4. Left posterior calf: Scab, present on admission. Recommend: No dressing needed. Continue to monitor site every shift. 5. Right medial foot at first metatarsal head and hallux and heel: Blanchable red erythema, present on admission. 6. Left posterior heel: Blanchable red erythema, present on admission. Recommend: No dressings needed. Continue to monitor sites every shift. Elevate, off-load and float bilateral heels with one pillow lengthwise under each extremity at all times. Do not allow any portion of feet or heels to touch bed or other surfaces at any time. Recommend reposition patient side to side only every 2 hours with pillow support. Elevate, off-load and float bilateral heels with one pillow lengthwise under each extremity at all times. Offload pressure areas with pillows for pressure re-distribution. Perform skin care and monitor skin integrity Q shift. Use Calmoseptine cream on moisture susceptible areas QID and PRN for soiling. Maintain patient on a low air-loss mattress.
[2020-07-26 11:36] VITALS: BP_SYST 142
[2020-07-26] MEDS ORDERED: MENTHOL/ZINC OXIDE 113 GM OINT. TP PRN (11:45)
--- NOTE | 2020-07-26 12:00 | NUR ---
THIS NURSE GAVE UPDATE TO VIRY, PATIENT'S #[id number]. WILL CONTINUE TO MONITOR PATIENT.
[2020-07-26] MEDS: D5W 1,000 ML IV SCH (12:14)
[2020-07-26 13:25] VITALS: BP_SYST 125
--- NOTE | 2020-07-26 14:00 | NUR ---
RESTRAINTS RELEASED AND PATIENT REPOSITIONED, KEPT CLEAN AND DRY. WILL CONTINUE TO MONITOR. D5W AT 70ML/HR ONGOING, IV ACCESS PATENT AND INTACT. WILL CONTINUE TO MONITOR PATIENT.
--- NOTE | 2020-07-26 15:07 | NUR ---
Engineer Technician: Hospice MATERIALS CLERK attending yariel reis and stated he will speak to pts. to refer pt. to hospice. MATERIALS CLERK will await orders for Hospice Eval.
[2020-07-26 15:34] VITALS: BP_SYST 140
--- NOTE | 2020-07-26 16:00 | NUR ---
PATIENT SPITTING SAUCE AT NURSE WHEN BEING FED.REPOSITIONED, KEPT CLEAN AND DRY. WILL CONTINUE TO MONITOR.
--- NOTE | 2020-07-26 18:00 | NUR ---
PATIENT WAS ABLE TO REMOVE RESTRAINTS AND PULLED IV TUBING. REFUSING IV AT THIS TIME.
--- NOTE | 2020-07-26 19:30 | NUR ---
OPENING NOTES RECEIVED REPORT FROM DAY SHIFT RN. PT RESTING IN BED, VERY CONFUSED. BREATHING EVEN AND UNLABORED TO ROOM AIR. NO SIGNS OF RESPIRATORY DISTRESS NOTED. PT HAS BILATERAL SOFT WRIST RESTRAINTS, NO SIGNS OF INJURY NOTED. BED ALARM ON, LOCKED IN LOWEST LEVEL. CALL LIGHT WITHIN REACH. SIDE RAILS UP X3. SAFETY, ASPIRATION, AND CONTACT ISOLATION PRECAUTIONS MAINTAINED. WILL CONTINUE TO MONITOR.
[2020-07-26 20:00] VITALS: BP_SYST 139
[2020-07-26] MEDS: MILK OF MAGNESIA 30 ML UDC PO SCH (21:00)
[2020-07-26] MEDS: ATORVASTATIN 20 MG TABLET PO SCH (21:36)
--- NOTE | 2020-07-26 21:36 | NUR ---
MEDICATION PASS SCHEDULED MEDICATIONS ADMINISTERED ORDERED. DISCUSSED MEDICATIONS ACTION AND POTENTIAL SIDE EFFECTS. CRUSHED MEDS AND MIXED WITH APPLESAUCE. PT SWALLOWED WITHOUT DIFFICULTY. BREATHING EVEN AND UNLABORED TO ROOM AIR. NO S/S OF SHORTNESS OF BREATH OR PAIN NOTED. CALL LIGHT WITHIN REACH. SIDE RAILS UP X3. BED ALARM ON. SAFETY AND CONTACT ISOLATION PRECAUTIONS ARE IN PLACE. WILL CONTINUE TO MONITOR.
[2020-07-26] MEDS: LATANOPROST 2.5 ML DROPS (XALATAN) OP SCH (21:37)
--- NOTE | 2020-07-27 00:05 | NUR ---
RN ROUNDS PT RESTING IN BED. BREATHING EVEN AND UNLABORED TO ROOM AIR. PT HAS BILATERAL SOFT WRIST RESTRAINTS, NO SIGNS OF INJURY NOTED. BED ALARM ON, LOCKED IN LOWEST POSITION. CALL LIGHT WITHIN REACH. SIDE RAILS UP X3. SAFETY, ASPIRATION, AND CONTACT ISOLATION PRECAUTIONS MAINTAINED. WILL MONITOR.
[2020-07-27 00:30] VITALS: BP_SYST 144
--- NOTE | 2020-07-27 01:50 | NUR ---
IV PLACEMENT: # 22 gauge angiocath placed to RIGHT FOREARM. Use of asceptic technique. Opsite placed over site. Blood return noted. Flushed with 5 cc of normal saline. No evidence of infiltration noted. Patient tolerated WELL.
[2020-07-27] MEDS: D5W 1,000 ML IV SCH ×2 (04:37→17:56)
--- NOTE | 2020-07-27 04:56 | NUR ---
CONSULT REASON FOR CONSULT: BEHAVIOR DISORDER PERSON I SPOKE WITH: EZEKIEL CONSULTING PHYSICIAN: DR. PEÑA RN TRAVEL PHONE NUMBER: [phone] ORDERING PHYSICIAN: DR. KUNZ FACESHEET WAS FAXED OVER
--- NOTE | 2020-07-27 06:31 | NUR ---
CLOSING NOTES PT RESTING IN BED. BREATHING EVEN AND UNLABORED TO ROOM AIR. NO SIGNS OF RESPIRATORY DISTRESS NOTED. PT HAS BILATERAL SOFT WRIST RESTRAINTS, NO SIGNS OF INJURY NOTED. BED ALARM ON, LOCKED IN LOWEST LEVEL. CALL LIGHT WITHIN REACH. SIDE RAILS UP X3. SAFETY, ASPIRATION, AND CONTACT ISOLATION PRECAUTIONS MAINTAINED. ALL NEEDS ARE MET THROUGHOUT SHIFT. WILL CONTINUE TO MONITOR UNTIL ENDORSE TO DAY SHIFT RN.
[2020-07-27] MEDS: QUEtiapine FUMARATE 25 MG TABLET PO SCH ×3 (08:20→21:03)
[2020-07-27] MEDS: VANCOMYCIN HCL ORAL SOLUTION 250 MG/5 ML, 80 ML PO SCH ×4 (08:21→21:00)
[2020-07-27] MEDS: BRIMONIDINE TARTRATE 0.2% 5 mL EYE DROPS OP SCH ×3 (08:24→21:04)
[2020-07-27 09:52] VITALS: BP_SYST 155
[2020-07-27 10:23] LABS: BASOPHILS % (AUTO) 0.5 % (0.0-2.0); EOSINOPHILS # (AUTO) 0.2 K/uL (0.0-0.4); EOSINOPHILS % (AUTO) 3.7 % (0.0-4.0); HEMATOCRIT 32.2 % (36-54); LYMPHOCYTES # (AUTO) 1.6 K/uL (1.0-5.5); LYMPHOCYTES % (AUTO) 23.9 % (20.5-51.5); MEAN CORPUSCULAR HEMOGLOBIN 32 pg (27-31); MEAN CORPUSCULAR HGB CONC 34 % (32-36); MEAN CORPUSCULAR VOLUME 96 fL (79.0-98.0); MONOCYTES # (AUTO) 0.9 K/uL (0.0-1.0); MONOCYTES % (AUTO) 12.9 % (1.7-9.3); PLATELET COUNT (AUTO) 259 K/uL (130-430); RED BLOOD CELL COUNT(AUTO) 3.38 MIL/uL (4.2-6.2); RED CELL DISTRIBUTION WIDTH 13.8 % (9.0-15.0); WHITE BLOOD COUNT (AUTO) 6.8 K/uL (4.8-10.8)
[2020-07-27 10:42] LABS: ALANINE AMINOTRANSFERASE 37 U/L (12-78); ALBUMIN 2.1 g/dL (3.4-4.8); ANION GAP 6 (5-15); ASPARTATE AMINOTRANSFERASE 29 U/L (10-37); CALCIUM 7.8 mg/dL (8.4-11.0); CHLORIDE 115 mmol/L (98-107); CREATININE 1.32 mg/dL (0.55-1.30); GLUCOSE 109 mg/dL (70-99); POTASSIUM 3.3 mmol/L (3.5-5.1); SODIUM SERUM 148 mmol/L (136-145); TOTAL BILIRUBIN 0.2 mg/dL (0.0-1.0); UREA NITROGEN, BLOOD 14 mg/dL (8-21)
[2020-07-27 11:37] VITALS: BP_SYST 167
--- NOTE | 2020-07-27 14:01 | NUR ---
Plastic Bubble Packer Note Spoke with Dr Reveles. He stated that hospice may be appropriate for patient. Noted that patient was readmitted from [facility]. On the last admission, [facility] had been planning to discharge patient to [facility]. However, patient was evaluated and determined to need continued inpatient psychiatric care and returned to [facility]. Patient was at [facility] one day prior to returning to [facility]. During the prior admission, patient's , Izabella, stated she would like patient to go to [facility]. I discussed that hospice may be appropriate at the SNF. [facility] and Izabella planned to discuss further after admission to [facility]. Izabella did want patient to have a DNR code status and signed the POLST, which was left in the chart. The POLST still needs to be signed by Dr Reveles. I placed it more prominently in the chart. Currently there is an order for a psych consult. Patient has restraints. Attempted to phone patient's , Izabella [phone]. No answer, no voicemail.
[2020-07-27 15:27] VITALS: BP_SYST 138
--- NOTE | 2020-07-27 18:04 | NUR ---
Pt Alert not oriented responds with verbal mumbles, no c/o pain through out shift was seen by psych NNO continue current medications. Currently has 22g to R.forearm running D5W @60ml/hr. Had one BM watery and green. Refused meals today. Crushed medications with applesauce pt continued to finish off applesauce. Overall pt demeanor was anxious but not physically aggressive. Restraints were released Q2H to allow patient to rest and improve circulation in bilateral wrists.
--- NOTE | 2020-07-27 19:20 | NUR ---
OPENING NOTES Patient is resting, restless at this time, IV site patent, dressings c/d/i, IVF running. Call light within reach, bed alarm on, bed at lowest position, C-diff precautions in place. Will continue to monitor.
[2020-07-27 20:00] VITALS: BP_SYST 155
--- NOTE | 2020-07-27 20:30 | NUR ---
Patient resting in bed, very confused and unable to reorient to room. No respiratory distress noted. Bilateral soft wrist restraints in place, no signs of injury noted. Bed alarm on, bed at lowest position. Will continue to monitor.
[2020-07-27] MEDS: MILK OF MAGNESIA 30 ML UDC PO SCH (21:00)
[2020-07-27] MEDS: ATORVASTATIN 20 MG TABLET PO SCH (21:03)
[2020-07-27] MEDS: LATANOPROST 2.5 ML DROPS (XALATAN) OP SCH (21:04)
--- NOTE | 2020-07-27 21:30 | NUR ---
PO medications provided, crushed in apple sauce. Unable to find Vancomycin oral in medication room and with help of warehouse record clerk, will call pharmacy in the morning. Patient tolerated eye drops well as well. Will continue to monitor.
--- NOTE | 2020-07-27 23:51 | NUR ---
Patient is resting, rise and fall of chest noted. No respiratory distress noted. Will continue to monitor.
[2020-07-28 01:13] VITALS: BP_SYST 152
--- NOTE | 2020-07-28 04:20 | NUR ---
Incontinence care provided, no signs of acute respiratory distress noted. Unable to reorient when explaining to patient that he needs to be changed, patient trying to get out of bed, kick and hit staff. Will continue to monitor.
[2020-07-28 07:00] VITALS: BP_SYST 144
--- NOTE | 2020-07-28 07:03 | NUR ---
CLOSING NOTES Patient resting in bed, very confused and unable to reorient to room. No respiratory distress noted. Bilateral soft wrist restraints in place, no signs of injury noted. IV site patent, dressings c/d/i, IVF running. Call light within reach, bed alarm on, bed at lowest position. All needs met throughout shift. Will endorse care to oncoming shift.
--- NOTE | 2020-07-28 08:30 | NUR ---
REPORT AND ASSESSMENT Report obtained from night nurse Brenden Fregoso at 0715 and this nurse assumed care of patient until 1930. Received patient awake this am, and CENTER HUMAN RESOURCES MANAGER stated he will not eat. VSS. No c/o pain or discomfort. Patient is very confused and unable to be reoriented to his room. He gets combative. Bilateral soft wrist restraints on. Assess for any injury and there are none. Patient needs or being met. Will continue to monitor patient. On Enteric precautions for C. diff. On Vancomycin.
[2020-07-28 08:32] VITALS: BP_SYST 144
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
--- NOTE | 2020-07-28 09:39 | NUR ---
Dietitian Recommendations * Recommend mechanical soft diet, Banatrol BID, Ensure Enlive TID (ONS provides 1050 kcal/day, 60 gm protein/day) *Consider appetite stimulant *If negligible PO intake persists, recommend alternative nutrition support. Please see Nutrition F/U for details. EP,RD
[2020-07-28] MEDS: BRIMONIDINE TARTRATE 0.2% 5 mL EYE DROPS OP SCH ×3 (09:46→21:42)
[2020-07-28] MEDS: QUEtiapine FUMARATE 25 MG TABLET PO SCH ×3 (09:47→21:43)
[2020-07-28 10:55] LABS: ANION GAP 9 (5-15); CALCIUM 7.9 mg/dL (8.4-11.0); CHLORIDE 112 mmol/L (98-107); CREATININE 1.35 mg/dL (0.55-1.30); GLUCOSE 84 mg/dL (70-99); POTASSIUM 3.1 mmol/L (3.5-5.1); SODIUM SERUM 146 mmol/L (136-145); UREA NITROGEN, BLOOD 11 mg/dL (8-21)
[2020-07-28 11:00] LABS: ALANINE AMINOTRANSFERASE 32 U/L (12-78); ALBUMIN 2.1 g/dL (3.4-4.8); ASPARTATE AMINOTRANSFERASE 28 U/L (10-37); TOTAL BILIRUBIN 0.3 mg/dL (0.0-1.0)
[2020-07-28 11:27] VITALS: BP_SYST 156
--- NOTE | 2020-07-28 11:28 | NUR ---
Landscaping Specialist/Hospice Note Received order for hospice evaluation. Spoke with Dr Reveles. He is aware that Dr Guerrero recommended continued inpatient psych placement. Patient has had multiple readmissions and Dr Reveles recommends hospice placement. Discussed that patient's is unable to care for him at home due to medical acuity and combativeness. Hospice will need to find SNF placement. Patient does not have [employer] so would need to pay for SNF inpatient costs if he goes under hospice. Patient is on restraints. Dr Reveles wants [facility] for patient. Patient is not to the point where he would be accepted to [facility] inpatient hospice facility. Phoned patient's , Izabella, . She stated she was meeting with someone named Chloé tomorrow; phone [phone]. Phoned that number but there was no information on the voicemail as to who that was. Phoned Nataliia with [facility], p [phone] f [phone]. Chloé is the intake person for [facility]. Dr Reveles had made the referral. I told her of above and faxed patient's information. Landscaping Specialist will remain available.
[2020-07-28] MEDS: VANCOMYCIN HCL ORAL SOLUTION 250 MG/5 ML, 80 ML PO SCH ×4 (12:50→21:43)
[2020-07-28] MEDS: D5W 1,000 ML IV SCH (12:55)
[2020-07-28 15:33] VITALS: BP_SYST 144
--- NOTE | 2020-07-28 18:53 | NUR ---
CLOSING NOTES Patient IV was disconnected at this time. Charge Nurse notified and she stated to have next shift nurse restart IV. Addendum: 07/28/20 at 1913 by Three distribution engineer Report given to ANISA Herrera about need to restart IV. No c/o pain or discomfort. SBAR given. Med crushed and given in apple sauce and able to swallow Vancomycin liquid. VSS. Afeb.
--- NOTE | 2020-07-28 19:20 | NUR ---
Late Entry Due to Patient Care: Pt was received lying in bed awake and oriented to his name only. Pt has bilateral soft wrist restraints and no circulatory impairment noted. IV line to be restarted.
[2020-07-28 20:00] VITALS: BP_SYST 132
--- NOTE | 2020-07-28 21:15 | NUR ---
IV restarted in RFA with Angiocath 22G and IVF of D5W restarted at 60ml/hr. Fall, C-Diff Contact Isolate and safety precautions are in place.
[2020-07-28] MEDS: ATORVASTATIN 20 MG TABLET PO SCH (21:43)
[2020-07-28] MEDS: MILK OF MAGNESIA 30 ML UDC PO SCH (21:43)
[2020-07-28] MEDS: LATANOPROST 2.5 ML DROPS (XALATAN) OP SCH (21:43)
--- NOTE | 2020-07-28 23:30 | NUR ---
No acute distress noted at this time. IVF is infusing well in RFA.
[2020-07-29 00:20] VITALS: BP_SYST 142
--- NOTE | 2020-07-29 06:30 | NUR ---
Pt is awake and resting comfortably in bed. IVF is infusing well in RFA. Fall and safety precautions are in place. Will endorse to day shift nurse.
[2020-07-29 08:00] VITALS: BP_SYST 149
--- NOTE | 2020-07-29 08:00 | NUR ---
initial notes rec patient awake very confused. hob slightly elevated. resp easy and unlabored. no osb noted. bed to the lowest positon and side rails up and locked. call light within reached.
--- NOTE | 2020-07-29 10:00 | NUR ---
rounds continue to have periods of confusion. bilateral restraints in place and checked for circulation. no sob noted
[2020-07-29] MEDS: D5W 1,000 ML IV SCH ×2 (11:32→19:46)
[2020-07-29] MEDS: VANCOMYCIN HCL ORAL SOLUTION 250 MG/5 ML, 80 ML PO SCH ×4 (11:35→21:51)
[2020-07-29] MEDS: QUEtiapine FUMARATE 25 MG TABLET PO SCH ×3 (11:35→21:49)
[2020-07-29] MEDS: BRIMONIDINE TARTRATE 0.2% 5 mL EYE DROPS OP SCH ×3 (11:36→21:50)
--- NOTE | 2020-07-29 11:38 | NUR ---
rounds seen by dr rollins. no sob noted. dorian [facility]yarints [facility].
[2020-07-29 12:30] VITALS: BP_SYST 126
--- NOTE | 2020-07-29 14:06 | NUR ---
Painter Aircraft Notes/Hospice: RADIO TIME SALES SUPERVISOR received update from Nataliia with [facility]. Patient has signed consents with [facility], family and [facility] are looking for board and care for the patient to be discharged to. [facility] asked SS for C-diff status update; updated with the help of Pilar REDMOND. SS will remain available.
[2020-07-29 16:34] VITALS: BP_SYST 121
--- NOTE | 2020-07-29 19:05 | NUR ---
Report received from day shift nurse. Pt is awake and alert. Pt is confused and oriented to his name only. Pt has bilateral soft wrist restraints and no circulatory impairment noted. IV line to be restarted.
[2020-07-29 20:00] VITALS: BP_SYST 118
--- NOTE | 2020-07-29 20:30 | NUR ---
New IV line restarted in RH with Angiocath 22G and IVF of D5W was resumed at 60ml/hr. Pt remains confused and oriented to his name only. Fall, C-Diff Contact Isolation and safety precautions are in place.
[2020-07-29] MEDS: ATORVASTATIN 20 MG TABLET PO SCH (21:49)
[2020-07-29] MEDS: MILK OF MAGNESIA 30 ML UDC PO SCH (21:49)
[2020-07-29] MEDS: LATANOPROST 2.5 ML DROPS (XALATAN) OP SCH (21:50)
--- NOTE | 2020-07-29 21:50 | NUR ---
Scheduled HS medications given. IVF is infusing well in RH. Pt remains confused and oriented to his name only. Bilateral soft wrist restraints are on and no circulatory impairment noted.
--- NOTE | 2020-07-30 | NUR ---
Pt remains confused and disoriented. IVF is infusing well in RH.
[2020-07-30 00:19] VITALS: BP_SYST 149
--- NOTE | 2020-07-30 02:30 | NUR ---
No acute distress noted at this time. IVF is infusing well in RH. Pt is still confused and combative during nursing care.
--- NOTE | 2020-07-30 04:30 | NUR ---
Pt is resting quietly in bed. IVF is infusing well in RH. Fall, C-Diff contact isolation and safety precautions are in place.
--- NOTE | 2020-07-30 06:30 | NUR ---
Pt is awake and remains confused/disoriented. IVF is infusing well in RH. Fall, C-Diff Contact Isolation and safety precautions are in place. Will endorse to day shift nurse.
--- NOTE | 2020-07-30 08:00 | NUR ---
initial notes rec patient asleep but arousable to stimuli. ivf infusing well on the r hand. no infiltration noted. resp easy and unlabored. no sob noted. bilateral soft wrist restraints in place and checked for circulation. bed to the lowest position and side rails up and locked. call light within reached.
[2020-07-30] MEDS: VANCOMYCIN HCL ORAL SOLUTION 250 MG/5 ML, 80 ML PO SCH ×2 (08:05→13:17)
[2020-07-30] MEDS: QUEtiapine FUMARATE 25 MG TABLET PO SCH ×3 (08:05→22:50)
[2020-07-30] MEDS: BRIMONIDINE TARTRATE 0.2% 5 mL EYE DROPS OP SCH ×3 (08:05→23:01)
[2020-07-30 08:08] VITALS: BP_SYST 148
--- NOTE | 2020-07-30 09:50 | NUR ---
CONSULTATION PAGED REASON FOR CONSULTATION:C.DIFF WAS CONSULT CALLED?Y PERSON WHO WAS NOTIFIED:EZEKIEL CONSULTING PHYSICIAN:FRANKLIN PÉREZ EVALUATION ADVISOR SPECIALTY:INFECTIOUS DISEASE EVALUATION ADVISOR PHONE NUMBER:[phone] REQUESTING PHYSICIAN:JOSESITO SÁNCHEZ
--- NOTE | 2020-07-30 10:00 | NUR ---
rounds due meds were given and holly well. seen by dr rollins, updated with patient's condition. sleeping soundly at this time.
--- NOTE | 2020-07-30 11:39 | NUR ---
Electric Mule Driver: work on D/C with [facility] SALES REPRESENTATIVE [employer]ALT [employer] received a call from Marcelo at [facility]. , . He stated he is working with the pts. family and may have found a Board and Care for pt. His Rn would like to do an assessment on pt. through a video chat. SALES REPRESENTATIVE MALT [employer]QUORS asked if she could call him back to give her time to read up on the case. SALES REPRESENTATIVE MALT [employer]QUORS received a call from Nataliia Wilburn, . She stated her agency may have found a Board and Care as well. She did not know [facility] or the agency [facility]. She will call him to make a plan for pts. D/C hopefully today. SALES REPRESENTATIVE MALT LIQUORS stated a video chat is not possible since pt. is still in restraints, combative and has C-def. SALES REPRESENTATIVE MALT [employer] will remain available as needed.
[2020-07-30 12:00] VITALS: BP_SYST 139
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
[2020-07-30] MEDS: D5W 1,000 ML IV SCH (13:18)
[2020-07-30 16:00] VITALS: BP_SYST 137
--- NOTE | 2020-07-30 16:19 | NUR ---
Spoke w/ Dr Antonio Brown-He will have CT of Abdomen done to determine if pt has active C-Diff-he will determine is pt colonized for C-Diff after he has results of the CT.
--- NOTE | 2020-07-30 17:20 | NUR ---
ID MD DR KARYN VOGEL WAS CALLED re: PT WAS ORDERED CT ORAL CONTRAST. PT DOES NOT TAKE ANYTHING ORAL. SPOKE TO RIAN
[2020-07-30] MEDS ORDERED: DIATR MEGLU/DIATRIZ SOD 30 ML SOLUTION PO ONE (17:22)
--- NOTE | 2020-07-30 18:30 | NUR ---
closing notes got an order for an ngt for the oral contrast. still very confused. will endorsed to night nurse to insert ngt. dorian restraints in place. no sob noted.
[2020-07-30 20:00] VITALS: BP_SYST 140
[2020-07-30] MEDS: ATORVASTATIN 20 MG TABLET PO SCH (22:49)
[2020-07-30] MEDS: metroNIDAZOLE 500 MG TABLET PO SCH (22:50)
[2020-07-30] MEDS: CHOLESTYRAMINE/SUCROSE 4 GM/PACKET PO SCH (22:50)
[2020-07-30] MEDS: MILK OF MAGNESIA 30 ML UDC PO SCH (22:50)
[2020-07-30] MEDS: LATANOPROST 2.5 ML DROPS (XALATAN) OP SCH (23:01)
[2020-07-31] VITALS: BP_SYST 129
[2020-07-31] MEDS ORDERED: DIATR MEGLU/DIATRIZ SOD 30 ML SOLUTION PO ONE (00:45)
[2020-07-31] MEDS: D5W 1,000 ML IV SCH ×2 (04:18→21:31)
--- NOTE | 2020-07-31 06:54 | NUR ---
CLOSING NOTES Patient resting in bed, awake, breathing evenly and nonlabored on room air. IV was restarted last night on the right forearm 22g, IVF currently running, patient tolerating it well. Patient continues to be on bilateral wrist restraints due to attempting to get out of bed, pull IV line, hitting/kicking. Patient needed to ingest contrast last night via NGT, attempted to insert NGT 3 times with admission nurse, attempt was unsuccessful. Called and spoke with Dr. Brown, he said to try again with an ICU nurse and if unsuccessful, to try with GI nurse in the morning. NGT was successfully placed with ER nurse Linda at 2315, stat chest XR was ordered for placement confirmation. Patient was able to pull out NGT even with the restraints around past midnight. NGT was reinserted by admission nurse, stat chest XR was done to confirm placement, contrast was given. Patient went to get CT at 0300. Needs met throughout the shift. Hygiene care was done. No other needs at this time. Fall/safety/isolation/aspiration precautions, will continue to monitor.
[2020-07-31 08:00] VITALS: BP_SYST 162
--- NOTE | 2020-07-31 08:00 | NUR ---
awake,confused,vss,restless and tried to climb out of bed,soft restraints in both wrists on to prevent pt pulling out IV and fall.IVF continue infusing,needs attended,side rails up,bed in low position and bed alarm set on,continue to monitor pt.
[2020-07-31] MEDS: metroNIDAZOLE 500 MG TABLET PO SCH ×2 (09:18→21:28)
[2020-07-31] MEDS: QUEtiapine FUMARATE 25 MG TABLET PO SCH ×3 (09:19→21:28)
[2020-07-31] MEDS: BRIMONIDINE TARTRATE 0.2% 5 mL EYE DROPS OP SCH ×3 (09:19→21:27)
--- NOTE | 2020-07-31 10:00 | NUR ---
give am meds due crushed and mixed with apple sauce.aspiration precaution maintained.
[2020-07-31 12:00] VITALS: BP_SYST 142
--- NOTE | 2020-07-31 12:00 | NUR ---
vss,IVF continue infusing,IV site remains patent and intact, came and seen pt,updated dr of pt condition orders received and carried out,IV ativan order read back and verified with .hourly rounds made,safety maintained
[2020-07-31] MEDS: CHOLESTYRAMINE/SUCROSE 4 GM/PACKET PO SCH ×2 (13:05→21:29)
--- NOTE | 2020-07-31 14:00 | NUR ---
pt sleeping quietly in bed,no acute distress observed.restraints loose and reapplied per care protocol.
[2020-07-31 16:00] VITALS: BP_SYST 114
--- NOTE | 2020-07-31 16:00 | NUR ---
vss,pt sleep well in bed,incontinent of bowel and bladder,patt care provided,hourly rounds made,safety maintained.
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
--- NOTE | 2020-07-31 16:38 | NUR ---
Dietitian Recommendations * Recommend mechanical soft diet, Banatrol BID, Ensure Enlive TID (ONS provides 1050 kcal/day, 60 gm protein/day) * Consider appetite stimulant * Consider alternative nutrition support LP, RD Please refer to Nutrition F/U for details.
--- NOTE | 2020-07-31 18:00 | NUR ---
pt still sleeping in bed,IVF continue infusing,no significant event throughout am shift.
--- NOTE | 2020-07-31 19:24 | NUR ---
report endorsed to shift supervisor nurse crystal to continue patient care.
--- NOTE | 2020-07-31 19:30 | NUR ---
Initial Notes: Received report from dayskeyshawnft RN. Patient is in bed, resting. No acute distress. Even, nonlabored breathing on room air. IV site is patent and intact. Soft bilateral wrist restraints in place. Skin and circulation within normal limits. Bed is locked at lowest position. Side rails up. Bed alarm on. Call light is with patient. Contact enteric, safety and fall precautions in place. Will continue with plan of care.
[2020-07-31 20:00] VITALS: BP_SYST 118
[2020-07-31] MEDS: LATANOPROST 2.5 ML DROPS (XALATAN) OP SCH (21:28)
[2020-07-31] MEDS: ATORVASTATIN 20 MG TABLET PO SCH (21:28)
[2020-07-31] MEDS: MILK OF MAGNESIA 30 ML UDC PO SCH (21:28)
--- NOTE | 2020-07-31 21:45 | NUR ---
Rounds: Patient in bed, resting. No signs of acute distress. Breathing is even, nonlabored on room air. Call light is with patient. Contact enteric, safety and fall precautions in place. Will continue to monitor.
[2020-08-01] VITALS: BP_SYST 138
--- NOTE | 2020-08-01 00:10 | NUR ---
Rounds: Patient in bed, resting. No s/s of acute distress. Respirations even, nonlabored on room air. Call light is with patient. Contact enteric, safety and fall precautions in place. Will continue to monitor.
--- NOTE | 2020-08-01 02:30 | NUR ---
Rounds: Patient in bed, resting. Showing no signs of acute distress. Even, nonlabored breathing. Call light is with patient. Contact enteric, safety and fall precautions in place. Will continue to monitor.
--- NOTE | 2020-08-01 04:30 | NUR ---
Rounds: Patient is resting in bed. No signs of acute distress. Breathing is even, nonlabored on room air. Call light is with patient. Safety and fall precautions in place. Will continue to monitor.
[2020-08-01 06:59] LABS: BASOPHILS % (AUTO) 0.3 % (0.0-2.0); EOSINOPHILS # (AUTO) 0.4 K/uL (0.0-0.4); EOSINOPHILS % (AUTO) 4.2 % (0.0-4.0); HEMOGLOBIN 9.7 g/dL (14.0-18.0); LYMPHOCYTES # (AUTO) 1.5 K/uL (1.0-5.5); LYMPHOCYTES % (AUTO) 15.1 % (20.5-51.5); MEAN CORPUSCULAR HEMOGLOBIN 33 pg (27-31); MEAN CORPUSCULAR HGB CONC 35 % (32-36); MEAN CORPUSCULAR VOLUME 95 fL (79.0-98.0); MONOCYTES # (AUTO) 0.7 K/uL (0.0-1.0); MONOCYTES % (AUTO) 6.8 % (1.7-9.3); NEUTROPHILS # (AUTO) 7.4 K/uL (1.8-7.7); NEUTROPHILS % (AUTO) 73.6 % (40.0-70.0); PLATELET COUNT (AUTO) 199 K/uL (130-430); RED BLOOD CELL COUNT(AUTO) 2.94 MIL/uL (4.2-6.2); RED CELL DISTRIBUTION WIDTH 13.7 % (9.0-15.0)
--- NOTE | 2020-08-01 06:59 | NUR ---
Closing note: Patient is in bed, resting. No acute distress. Even, nonlabored breathing on room air. IV site is patent and intact. Soft bilateral wrist restraints in place. Skin and circulation within normal limits. All needs met. Bed is locked at lowest position. Side rails up. Bed alarm on. Call light is with patient. Contact enteric, safety and fall precautions in place. Will endorse care to dayshift RN.
[2020-08-01 07:03] LABS: ALANINE AMINOTRANSFERASE 23 U/L (12-78); ANION GAP 4 (5-15); ASPARTATE AMINOTRANSFERASE 22 U/L (10-37); CALCIUM 7.6 mg/dL (8.4-11.0); CHLORIDE 104 mmol/L (98-107); CREATININE 1.22 mg/dL (0.55-1.30); GLUCOSE 115 mg/dL (70-99); POTASSIUM 3.4 mmol/L (3.5-5.1); SODIUM SERUM 141 mmol/L (136-145); TOTAL BILIRUBIN 0.2 mg/dL (0.0-1.0); UREA NITROGEN, BLOOD 9 mg/dL (8-21)
--- NOTE | 2020-08-01 07:40 | NUR ---
OPENING NOTES PT RESTING IN BED, CHEST RISE AND FALL NOTED. NONLABORED BREATHING NOTED ON ROOM AIR, NO S/S OF PAIN OR SOB NOTED. IV LINE INTACT AND PATENT, NO SIGNS OF INFILTRATION NOTED, FLUIDS RUNNING ORDERED PER MD. SOFT BILATERAL WRIST RESTRAINTS IN PLACE, NO SIGNS OF INJURY NOTED. ALL NEEDS MET. CALL LIGHT IN REACH. FALL AND ASPIRATION PRECAUTIONS IN PLACE. CONTINUE TO MONITOR.
[2020-08-01 08:00] VITALS: BP_SYST 141
[2020-08-01] MEDS ORDERED: cloNIDine HCL 0.1 MG/24 HR PATCH.TDWK TD SCH (09:00)
--- NOTE | 2020-08-01 09:15 | NUR ---
CLEANED PT WITH COMMITTEE MEMBER, SUREKHA. PT COMBATIVE. PT CLEAN AND DRY. CONTINUE TO MONITOR.
[2020-08-01] MEDS: BRIMONIDINE TARTRATE 0.2% 5 mL EYE DROPS OP SCH ×3 (10:08→20:41)
[2020-08-01] MEDS: QUEtiapine FUMARATE 25 MG TABLET PO SCH ×3 (10:08→20:41)
[2020-08-01] MEDS: metroNIDAZOLE 500 MG TABLET PO SCH ×2 (10:09→20:41)
[2020-08-01] MEDS: CHOLESTYRAMINE/SUCROSE 4 GM/PACKET PO SCH ×2 (10:09→20:41)
--- NOTE | 2020-08-01 10:09 | NUR ---
ADMINISTERED ROUTINE MEDS ADMINISTERED ORDERED PER MD, EDUCATION GIVEN, TOLERATED WELL. PLACED BP PATCH ON RIGHT ARM. CONTINUE TO MONITOR.
[2020-08-01 11:37] VITALS: BP_SYST 145
--- NOTE | 2020-08-01 11:47 | NUR ---
ROUNDS PT RESTING IN BED, CHEST RISE AND FALL NOTED. EASILY AWAKEN AND GETS AGITATED. NO ACUTE DISTRESS NOTED. ALL NEEDS MET. CALL LIGHT IN REACH. CONTINUE TO MONITOR.
--- NOTE | 2020-08-01 14:00 | NUR ---
ROUNDS PT RESTING IN BED, CHEST RISE AND FALL NOTED. ALL NEEDS MET. CALL LIGHT IN REACH. CONTINUE TO MONITOR.
[2020-08-01 15:14] VITALS: BP_SYST 136
[2020-08-01] MEDS: D5W 1,000 ML IV SCH (16:01)
--- NOTE | 2020-08-01 16:04 | NUR ---
routine meds administered as ordered per md, education given, tolerated well. continue to monitor.
--- NOTE | 2020-08-01 17:46 | NUR ---
cleaned pt with nagat, HAND ETCHER HELPER, pt combative, tolerated well. no injuries noted on bilateral wrists, pt clean and dry, restraints in place. continue to monitor.
--- NOTE | 2020-08-01 18:45 | NUR ---
SPOKE TO DR. HALL REGARDING POTASSIUM, RECEIVED ORDERS, VERIFIED, AND CARRIED OUT.
--- NOTE | 2020-08-01 18:46 | NUR ---
HIGH ALERT NOTE: Called Dr. HALL back at [phone] identified within the medical roster to verify physician authenticity.
--- NOTE | 2020-08-01 18:48 | NUR ---
CLOSING NOTES PT RESTING IN BED, CHEST RISE AND FALL NOTED, EASILY AWAKEN. NONLABORED BREATHING NOTED ON ROOM AIR. NO SIGNS OR SYMPTOMS OF PAIN OR SOB NOTED. SOFT BILATERAL WRIST RESTRAINTS IN PLACE, NO SIGNS OF INJURY NOTED. IV LINE INTACT AND PATENT, NO SIGNS OF INFILTRATION NOTED, FLUIDS RUNNING ORDERED PER MD. ALL NEEDS MET. CALL LIGHT IN REACH. FALL AND ASPIRATION PRECAUTIONS IN PLACE. WILL ENDORSE TO NOC NURSE. AWAITING FOR PHARM TO APPROVE POTASSIUM FOR ADMINISTRATION.
[2020-08-01] MEDS ORDERED: POTASSIUM CHLORIDE 10 MEQ TAB.PRT.SR PO ONE (19:00)
[2020-08-01 20:00] VITALS: BP_SYST 156
[2020-08-01] MEDS: LATANOPROST 2.5 ML DROPS (XALATAN) OP SCH (20:40)
[2020-08-01] MEDS: MILK OF MAGNESIA 30 ML UDC PO SCH (20:41)
[2020-08-01] MEDS: ATORVASTATIN 20 MG TABLET PO SCH (20:41)
--- NOTE | 2020-08-01 22:00 | NUR ---
Rounds: Patient is sleeping in bed. No acute distress. Even, nonlabored respirations. Call light is with patient. Contact, safety, and fall precautions in place. Will continue to monitor patient.
[2020-08-02] VITALS: BP_SYST 150
--- NOTE | 2020-08-02 00:15 | NUR ---
Rounds: Patient is sleeping in bed. No signs of acute distress. Respirations are even, nonlabored on room air. Call light is with patient. Contact, safety and fall precautions in place. Will continue to monitor.
[2020-08-02] MEDS: LORazepam 2 MG/ML VIAL IVP PRN ×2 (02:42→18:30)
--- NOTE | 2020-08-02 02:42 | NUR ---
Agitation: Patient showing agitation. Ativan 0.5mg IVP indicated. Educated patient on indications and side effects. Patient is confused and unable to verbalized understanding. Medication administered per MD order. Patient tolerated well. Will continue to monitor and reassess.
--- NOTE | 2020-08-02 03:40 | NUR ---
IV RE-INSERTION: Restarted on RIGHT FOREARM #18. Successful after 1 attempts. Resumed current IVF of D5W @ 60ml/hr. Will observe for any signs of infiltration.
--- NOTE | 2020-08-02 05:00 | NUR ---
Rounds: Patient is sleeping in bed. No s/s of acute distress. Breathing is even, nonlabored on room air. Call light is with patient. Contact, safety and fall precautions in place. Will continue to monitor.
[2020-08-02 08:00] VITALS: BP_SYST 128
--- NOTE | 2020-08-02 08:00 | NUR ---
Opening Notes Patient is laying in bed, resting at this time. Alert and oriented x1. Pt remains on soft wrist bilateral restraints at this time. Dressing noted on right wrist. No agitation noted at this time. No resp distress. Breathing is even and unlabored. IV site on right FA, 18 gauge intact at this time. D5W @ 60 cc/hr, infusing well at this time. Pt is incontinent, cleaned and repositioned at this time. All needs met. Safety and fall precautions in place. Bed in lowest position, alarm on, locked. Will continue to monitor.
--- NOTE | 2020-08-02 09:27 | NUR ---
SS Notes: HEALTH AND WELLNESS SALES CONSULTANT phoned Izabella. Per Izabella, the family is seeing one more facility today "[facility]" at 11AM and will give an update on their decision after lunch. HEALTH AND WELLNESS SALES CONSULTANT will follow-up. Addendum: 08/02/20 at 1455 by Erich Harley HEALTH AND WELLNESS SALES CONSULTANT HEALTH AND WELLNESS SALES CONSULTANT received a call from Admitting, stating that the patient's Izabella is in the front to sign paperwork. Per Izabella, they made the decision to use [id number] and has already paid the facility. HEALTH AND WELLNESS SALES CONSULTANT notified Nataliia with [facility] who will send nurse to [facility] today. [facility] also will arrange transportation for pick-up and DME has been ordered. Nurse Purdy brought valuables to family and will have them sign discharge paperwork. Discharge order in place. SS will remain available.
--- NOTE | 2020-08-02 09:30 | NUR ---
Patient is being seen and examined by DR. KUNZ
[2020-08-02] MEDS: CHOLESTYRAMINE/SUCROSE 4 GM/PACKET PO SCH (09:45)
[2020-08-02] MEDS: D5W 1,000 ML IV SCH (09:45)
[2020-08-02] MEDS: metroNIDAZOLE 500 MG TABLET PO SCH (09:46)
[2020-08-02] MEDS: QUEtiapine FUMARATE 25 MG TABLET PO SCH ×2 (09:46→17:35)
[2020-08-02] MEDS: BRIMONIDINE TARTRATE 0.2% 5 mL EYE DROPS OP SCH ×2 (09:46→15:17)
--- NOTE | 2020-08-02 10:00 | NUR ---
Patient is being seen and examined by PHYSICAL THERAPY
--- NOTE | 2020-08-02 10:00 | NUR ---
Tylenol 650 mg x PT Patient was given Tylenol 650 mg PO prior to PT evaluation, given at 0945. Medication was crushed and mixed with applesauce, pt tolerated med well. No resp distress noted. Breathing is even and unlabored. Pt is noted with grimacing when repositioned in bed. Will continue to monitor.
[2020-08-02 11:28] VITALS: BP_SYST 120
--- NOTE | 2020-08-02 11:55 | NUR ---
Wound Re-Evaluation: Patient evaluated for a low Moo score of 13, now a 15. Patient was awake, alert, oriented x 1 and received in a Hale Bed with an IsoFlex YU mattress with low air-loss therapy. Patient needs assist to turn in bed. Skin assessment: 1. Sacral/buttocks areas: IAD with blanchable red erythema, present on admission. Decreased erythema. Recommend continue: Cleanse involved areas with mild soap and water. Pat dry. Apply Calmoseptine cream to involved areas. Perform site care 4 times daily as needed for soiling. 2. Left upper extremity: Multiple areas of ecchymosis with a few scattered scabs, present on admission. Skin tear present on lateral aspect. Erythema present. 3. Right upper extremity: Multiple areas of ecchymosis with a few scattered scabs and erythema on the forearm, present on admission. Skin tears present on medial and lateral aspects. Recommend: Cleanse skin tears with normal Saline. Apply SurePrep to patt areas of skin tears. Apply Hydrogel to skin tears. Cover with foam dressings. Perform site care daily, and as needed for dressing soiling or dislodgment. 4. Left posterior calf: Scab, present on admission. Scab site has resolved. Recommend continue: No dressing needed. Continue to monitor site every shift. 5. Right medial foot at first metatarsal head and hallux and heel: Blanchable red erythema, present on admission. Decreased erythema. 6. Left posterior heel: Blanchable red erythema, present on admission. Erythema mostly on lateral aspect of Calcaneous. Recommend continue: No dressings needed. Continue to monitor sites every shift. Elevate, off-load and float bilateral heels with one pillow lengthwise under each extremity at all times. Do not allow any portion of feet or heels to touch bed or other surfaces at any time. Recommend continue: Encourage and assist patient with repositioning patient side to side only every 2 hours with pillow support. Elevate, off-load and float bilateral heels with one pillow lengthwise under each extremity at all times. Offload pressure areas with pillows for pressure re-distribution. Perform skin care and monitor skin integrity Q shift. Use Calmoseptine cream on moisture susceptible areas QID and PRN for soiling. Maintain patient on a low air-loss mattress.
--- NOTE | 2020-08-02 12:25 | NUR ---
Notes/DC ISOLATION Patient is sleeping in bed at this time. Isolation precautions for CDIFF discontinued. No resp distress noted. Breathing is even and unlabored. No signs of pain at this time. Will continue to monitor.
--- NOTE | 2020-08-02 14:32 | NUR ---
Notes Patient is sleeping at this time. No resp distress noted. Breathing is even and unlabored. Shows no pain at this time. Soft wrist bilateral restraints still in place at this time. Will continue to monitor.
[2020-08-02 14:58] VITALS: BP_SYST 120
--- NOTE | 2020-08-02 15:36 | NUR ---
Wound Care Nurse performed wound care on pts right wrist. Cleanse with NS, pat dry, apply Hydrogel to wound beds, apply foam dressing. Pt tolerated wound care, no signs of pain at this time. No agitation noted. Will continue to monitor.
[2020-08-02 15:37] VITALS: BP_SYST 129
--- NOTE | 2020-08-02 18:43 | NUR ---
Closing Notes/Ativa 0.5 mg IVP Patient is laying in bed, resting at this time. Alert and oriented x1. Patient is agitated. Noted attempting to grab the nurse and scratch their hands/arms and attempting to kick the staff. Patient was given Ativan 0.5 mg IVP, tolerated well. IV site was removed, preparing for discharge. IVF discontinued at this time. No resp distress noted. Breathing is even and unlabored. Pt shows no signs of pain at this time. Pt is refusing to eat dinner. All needs met. Safety and fall precautions in place. Call light within reach. Bed in lowest position, alarm on, locked. Will continue to monitor.
--- NOTE | 2020-08-02 19:25 | NUR ---
D/C Patient [facility]ANGE transfer to [facility]. Exit Care provided. Patient is being transferred to board and charge per request of . Patient in stable condition, ID band removed. IV catheter removed, intact and dressing applied, no active bleeding. No agitation noted upon discharge. Patient educated on pain management. Pt had no noted belongings.
== END 2020-08-02 19:25 | disposition hospice, home (50) | DRG 371 ==
LOC: SED 20:48 → SMU 21:41
PROVIDERS: ADMIT Internal Medicine Hospice and Palliative Medicine; ATTEND Internal Medicine Hospice and Palliative Medicine
DX: A04.72 Enterocolitis due to Clostridium difficile, not specified as recurrent (principal); G93.41 Metabolic encephalopathy; E43 Unspecified severe protein-calorie malnutrition; N17.9 Acute kidney failure, unspecified; Z68.1 Body mass index [BMI] 19.9 or less, adult; F03.90 Unspecified dementia, unspecified severity, without behavioral disturbance, psychotic disturbance, mood disturbance, and anxiety; I10 Essential (primary) hypertension; D64.9 Anemia, unspecified; Z20.828 Contact with and (suspected) exposure to other viral communicable diseases
CPT/HCPCS: 36415; 71045; 80053; 81000-TC; 83605; 84484; 85025; 85610-TC; 85730-TC; 87040-TC; 87081; 87086; 87230-TC; 93005; 99285; J2060; J3370; J7030; J7042; J7060; Q9964